=== PATIENT | male | born 2000 | race Caucasian/White ===

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

== ENCOUNTER 2019-07-15 14:35 | Inpatient (IN) ==
[2019-07-15] MEDS ORDERED: AMIDATE ONE (14:51)
[2019-07-15] MEDS ORDERED: ATIVAN ONE (14:51)
[2019-07-15] MEDS ORDERED: QUELICIN ONE (14:52)
[2019-07-15] MEDS ORDERED: NARCAN ONE (14:53)
[2019-07-15] MEDS ORDERED: ATIVAN IV ONE ×3 (14:59→16:30)
[2019-07-15] MEDS ORDERED: NARCAN IV ONE (14:59)
[2019-07-15] MEDS ORDERED: DIPRIVAN 1% 1,000 MG/100 ML BOTTLE ONE ×2 (14:59→16:03)
--- NOTE | 2019-07-15 15:23 | Diag Imaging Result Doc PS360 ---
EXAM: CHEST-PORTABLE HISTORY: INTUBATED TECHNIQUE: Single view COMPARISON: None. FINDINGS: The lungs are well expanded. Endotracheal tube in good position. The tip is located approximately 4 cm above the wilver. The heart is not enlarged. The vessels are not distended. There are no infiltrates. No effusion identified. IMPRESSION: Endotracheal tube in good position. Electronically signed by Michael Grande 07/15/2019 3:20 PM
[2019-07-15] MEDS: VERSED 100 MG in NS 80 ML IV SCH (15:32)
--- NOTE | 2019-07-15 15:34 | Diag Imaging Result Doc PS360 ---
EXAM: CT HEAD W/O CONTRAST INDICATION: AMS TECHNIQUE: This exam was performed using automated exposure control, adjustment of mA or kV according to patient size, and/or use of iterative reconstruction technique. COMPARISON: None. FINDINGS: There is no definite acute infarct given the limited sensitivity of CT versus MRI. There is no discrete intracranial mass, mass effect, or intracranial hemorrhage. The surrounding soft tissues and bony structures are essentially unremarkable. IMPRESSION: No evidence of acute intracranial pathology. Electronically signed by Huy Keene 07/15/2019 3:32 PM
[2019-07-15] MEDS ORDERED: NS 1,000 ML ONE (15:49)
[2019-07-15] MEDS ORDERED: NS 1,000 ML IV ONE ×2 (15:50)
[2019-07-15 15:53] LABS: URINE SOURCE CATH
[2019-07-15] MEDS ORDERED: DIPRIVAN 1% IV ONE ×2 (15:55→17:06)
[2019-07-15] MEDS: DIPRIVAN 1% 1,000 MG/100 ML BOTTLE IV SCH ×2 (16:01→23:27)
[2019-07-15 16:20] LABS: BASO# 0.08 X1000 (0.0-0.2); BASO% 0.7 % (0.0-0.8); EOS# 0.05 X1000 (0.0-0.7); EOS% 0.4 % (0.0-10.0); HEMATOCRIT 56.2 % (42.0-52.0); HEMOGLOBIN 17.7 g/dL (14.0-18.0); IMM GRAN# 0.44 X1000 (0.0-0.04); IMM GRAN% 3.6 % (0.0-0.5); LYMPH# 6.21 X1000 (1.2-3.4); LYMPH% 50.9 % (20.5-51.1); MCH 30.8 PG (27-31); MCHC 31.5 g/dL (33-37); MCV 97.7 FL (81-99); MONO# 0.68 X1000 (0.11-0.59); MONO% 5.6 % (1.7-9.3); MPV 12.9 FL (7.4-10.4); NEUT# 4.75 X1000 (1.4-6.5); NEUT% 38.8 % (42.2-75.2); PLT 236 X1000 (130-400); RBC 5.75 XMIL (4.7-6.1); RDW 11.9 % (11.5-14.5); WBC 12.21 X1000 (4.8-10.8)
[2019-07-15 16:21] LABS: BILIRUBIN URINE NEGATIVE (NEGATIVE); BLOOD URINE MODERATE (NEGATIVE); COLOR YELLOW; GLUCOSE URINE NEGATIVE (NEGATIVE); KETONE URINE 20 mg/dL (NEGATIVE); LEUKOCYTES URINE NEGATIVE (NEGATIVE); NITRITE URINE NEGATIVE (NEGATIVE); PH URINE 6.5; PROTEIN URINE >600 mg/dL (NEGATIVE); SP GRAVITY URINE 1.031; TURBIDITY URINE HAZY (CLEAR); UROBILINOGEN URINE 8 mg/dL (NORMAL)
[2019-07-15 16:23] LABS: UR EPITHELIAL CELLS <10 /HPF (<10); URINE BACTERIA NEGATIVE /HPF; URINE RBC 20-40 /HPF (<10)
[2019-07-15 16:35] LABS: UR AMPHETAMINES QUAL NONE DETECTED (NONE DETECT); UR BARBITUATES QUAL NONE DETECTED (NONE DETECT); UR BENZODIAZEPIN QUAL NONE DETECTED (NONE DETECT); UR CANNABINOIDS QUAL PRESUMPTIVE POSITIVE (NONE DETECT); UR COCAINE QUAL PRESUMPTIVE POSITIVE (NONE DETECT); UR METHADONE QUAL NONE DETECTED (NONE DETECT); UR OPIATES QUAL NONE DETECTED (NONE DETECT); UR OXYCODONE QUAL NONE DETECTED (NONE DETECT); UR PCP QUAL NONE DETECTED (NONE DETECT)
[2019-07-15 17:06] LABS: ACETAMINOPHEN < 1.2 ug/mL (10-30); AGAP 43; ALBUMIN 5.9 g/dL (3.5-5.0); ALKALINE PHOSPHATASE 98 U/L (32-122); BUN 17 mg/dL (8-22); CALCIUM 13.5 mg/dL (8.8-10.2); CHLORIDE 93 mmol/L (98-107); COSMO 302; CREATININE 1.5 mg/dL (0.7-1.2); ESTIMATED GFR 41; GLUCOSE 240 mg/dL (70-104); GOT 30 U/L (10-34); GPT 17 U/L (10-44); MAGNESIUM 3.1 mg/dL (1.5-2.7); POTASSIUM 5.1 mmol/L (3.5-5.1); SODIUM 147 mmol/L (136-145); TCO2 11 mmol/L (25-35); TOTAL BILIRUBIN 1.68 mg/dL (0.20-1.00); TOTAL PROTEIN 8.8 g/dL (6.3-8.3)
--- NOTE | 2019-07-15 17:07 | PROVIDER DOCUMENTATION ---
This chart was entered by Elysia Ochoa Scribe, acting as scribe for Jacky Merritt MD. [id number] Abuse/Overdose - General Chief Complaint: Unresponsive Stated Complaint: OVERDOSE Time Seen by Provider: 07/15/19 14:54 Source: EMS Allergies/Adverse Reactions: Allergies Allergy/AdvReac Type Severity Reaction Status Date / Time vancomycin Allergy ITCHING Verified 06/18/19 15:56 Home Medications: Home Medication List Medication Instructions Recorded Confirmed Last Taken Type Ibuprofen [Ibu] 800 mg PO Q8H #15 tab 04/17/19 Unknown Rx Cephalexin [Keflex] 500 mg PO BID #14 cap 06/18/19 Unknown Rx Mupirocin Ointment [Bactroban 1 applicatn TOP TID #1 tube 06/18/19 Unknown Rx Ointment] NK [No Home Medications] 07/15/19 07/15/19 Unknown History - History of Present Illness-Drug/Alcohol Nature of Presenting Problem: y/o male presents to ED unresponsive. Pt was found in his vehicle in a parking lot with agonal respirations. EMS reports friend of pt was at the scene and states was taking fentanyl and xanax. EMS states they gave 2 of Narcan en route to ED and placed nonrebreather. EMS reports pt began seizing in the ambulance. Pt is unresponsive and seizing upon ED arrival. This episode of drinking or use began:: unsure Severity: reports: severe Situational problems related to:: reports: N/A Psychiatric Complaints: reports: denies symptoms Associated Symptoms: reports: other (unresponsive) Any injuries associated with this episode of intoxication?: No Similar Symptoms Previously?: No Recently seen or treated by another doctor?: No - Overdose List substance(s) ingested.: fentanyl; xanax How did the ingestion/other suicidal act come to attention?: friend of pt called EMS Suicide Risk Assessment: male sex, drug or ETOH abuse Review of Systems - Adult - REVIEW OF SYSTEMS - ADULT ROS:: unobtainable per condition (unresponsive) Constitutional: reports: no symptoms reported Past History - Adult - PAST MEDICAL HISTORY-ADULT Review of Records: reports: Old Records Reviewed, Nursing Assessment Review, Medications Reviewed Major Childhood Illnesses: reports: denies history - IMMUNIZATION STATUS Childhood Immunizations: See Nurse Assessment Flu Vaccine: See Nurse Assessment - FAMILY HISTORY Family History: reviewed, not pertinent - SOCIAL HISTORY Living Situation: family Physical Exam-General - PHYSICAL EXAM-ADULT Initial Vital Signs Reviewed: Yes (O2 sat 88% upon arrival; bp 110/50; FSBS 192) - CONSTITUTIONAL General Appearance: other (unresponsive; actively seizing; incontinence; nonrebreather in place; cannot follow commands) - EYES Eyes: pink conjunctivae, other (dilated pupils to 1 cm) - HEAD, EARS, NOSE, MOUTH & THROAT HENMT: normocephalic/atraumatic, moist mucous membranes - RESPIRATORY Respiratory: accessory muscle use, other (nonrebreather in place) - CARDIOVASCULAR Cardiovascular: other (pt tachycardic on arrival; HR decreased to 40s; HR increased to 70s after intubation) - GASTROINTESTINAL (ABDOMEN) Abdominal Exam: normal bowel sounds, soft - SKIN Integumentary: normal color, warm/dry - NEUROLOGIC Neurologic: other (unresponsive; actively seizing; cannot follow commands) - PSYCHIATRIC Psych/Mental Status: other (unresponsive; actively seizing; cannot follow co mmands) Progress - PLAN OF CARE/RESULTS Progress/Plan/Lab Results: Vital Signs - 8 hr 07/15/19 14:37 07/15/19 14:41 07/15/19 14:42 Temperature 98.6 F Pulse Rate 103 H 77 92 H Respiratory Rate 33 H 33 H 33 H Blood Pressure 126/70 126/70 O2 Sat by Pulse Oximetry 91 L 91 L 91 L 07/15/19 14:43 07/15/19 14:45 07/15/19 14:46 Temperature Pulse Rate 55 L 92 H Respiratory Rate 22 23 23 Blood Pressure 131/74 110/50 O2 Sat by Pulse Oximetry 86 L 88 L 07/15/19 14:48 07/15/19 14:50 07/15/19 14:51 Temperature Pulse Rate 62 37 L 76 Respiratory Rate 31 H 8 L 40 H Blood Pressure 108/51 148/67 O2 Sat by Pulse Oximetry 89 L 90 L 07/15/19 14:53 07/15/19 14:55 07/15/19 14:56 Temperature Pulse Rate 74 57 L 55 L Respiratory Rate 27 H 17 16 Blood Pressure 160/55 148/67 O2 Sat by Pulse Oximetry 91 L 90 L 90 L 07/15/19 14:57 07/15/19 14:59 07/15/19 15:00 Temperature Pulse Rate 54 L 51 L 50 L Respiratory Rate 17 17 15 Blood Pressure 139/64 147/62 O2 Sat by Pulse Oximetry 88 L 91 L 90 L 07/15/19 15:01 07/15/19 15:03 07/15/19 15:04 Temperature Pulse Rate 55 L 61 62 Respiratory Rate 17 21 21 Blood Pressure 154/67 147/74 O2 Sat by Pulse Oximetry 90 L 89 L 90 L 07/15/19 15:15 Temperature Pulse Rate Respiratory Rate Blood Pressure O2 Sat by Pulse Oximetry 94 L Laboratory Results - last 24 hr 07/15/19 07/15/19 07/15/19 14:42 14:42 14:42 WBC RBC Hgb Hct MCV MCH MCHC RDW Std Deviation Plt Count MPV Immature Gran % (Auto) Neut % (Auto) Lymph % (Auto) [place] % (Auto) Eos % (Auto) Baso % (Auto) Immature Gran # (Auto) Neut # (Auto) Lymph # (Auto) [place] # (Auto) Eos # (Auto) Baso # (Auto) Urine Source CATH Urine Color YELLOW Urine Turbidity HAZY Urine pH 6.5 Ur Specific [place] 1.031 Urine Protein >600 A Ur Glucose (Stick) NEGATIVE Ur Ketones (Stick) 20 A Urine Blood MODERATE A Urine Nitrite NEGATIVE Urine Bilirubin NEGATIVE Urobilinogen Dipstick 8 A Urine Leukocytes NEGATIVE Urine WBC (Auto) 10-20 A Urine RBC (Auto) 20-40 A U Epithel Cells (Auto) <10 Urine Bacteria (Auto) NEGATIVE Urine Opiates Screen NONE DETECTED Ur Oxycodone Screen NONE DETECTED Ur Methadone, Qual NONE DETECTED Ur Barbiturates Screen NONE DETECTED Ur Phencyclidine Scrn NONE DETECTED Ur Amphetamines Screen NONE DETECTED U Benzodiazepines Scrn NONE DETECTED Urine Cocaine Screen PRESUMPTIVE POSITIVE A U Cannabinoids Screen PRESUMPTIVE POSITIVE A Plasma/Serum Ethyl Alc 07/15/19 14:42 WBC 12.21 H RBC 5.75 Hgb 17.7 Hct 56.2 H MCV 97.7 MCH 30.8 MCHC 31.5 L RDW Std Deviation 11.9 Plt Count 236 MPV 12.9 H Immature Gran % (Auto) 3.6 H Neut % (Auto) 38.8 L Lymph % (Auto) 50.9 [place] % (Auto) 5.6 Eos % (Auto) 0.4 Baso % (Auto) 0.7 Immature Gran # (Auto) 0.44 H Neut # (Auto) 4.75 Lymph # (Auto) 6.21 H [place] # (Auto) 0.68 H Eos # (Auto) 0.05 Baso # (Auto) 0.08 Urine Source Urine Color Urine Turbidity Urine pH Ur Specific [place] Urine Protein Ur Glucose (Stick) Ur Ketones (Stick) Urine Blood Urine Nitrite Urine Bilirubin Urobilinogen Dipstick Urine Leukocytes Urine WBC (Auto) Urine RBC (Auto) U Epithel Cells (Auto) Urine Bacteria (Auto) Urine Opiates Screen Ur Oxycodone Screen Ur Methadone, Qual Ur Barbiturates Screen Ur Phencyclidine Scrn Ur Amphetamines Screen U Benzodiazepines Scrn Urine Cocaine Screen U Cannabinoids Screen Plasma/Serum Ethyl Alc Orders Category Date Time Status CT HEAD W/O CONTRAST [CT] Stat Exams 07/15/19 14:55 Completed cxr [CHEST-PORTABLE] [RAD] Stat Exams 07/15/19 14:54 Completed ACETAMINOPHEN [TDM] Stat Lab 07/15/19 14:42 Received ALCOHOL BLOOD Stat Lab 07/15/19 14:42 Completed CBC WITH ELECTRONIC DIFF [HEME] Stat Lab 07/15/19 14:42 Completed COMPREHENSIVE METABOLIC PANEL [CHEM] Stat Lab 07/15/19 14:42 Received MAGNESIUM [CHEM] Stat Lab 07/15/19 14:42 Received TROPONIN T Stat Lab 07/15/19 14:42 Received URINALYSIS [URINALYSIS] Stat Lab 07/15/19 14:42 Completed URINE DRUG SCREEN Stat Lab 07/15/19 14:42 Completed 0.9% Sodium Chloride Inj [Ns] 1,000 ml Med 07/15/19 15:49 Discontinued .ROUTE As directed 0.9% Sodium Chloride Inj [Ns] 1,000 ml Med 07/15/19 15:50 Active IV 125 mls/hr 0.9% Sodium Chloride Inj [Ns] 1,000 ml Med 07/15/19 15:50 Discontinued IV 999 mls/hr 0.9% Sodium Chloride Inj [Ns] 80 ml Med 07/15/19 15:00 Active Midazolam [Versed] 100 mg IV As Directed mls/hr Etomidate [Amidate] Med 07/15/19 14:51 Discontinued 40 mg .ROUTE .STK-MED ONE Lorazepam [Ativan] Med 07/15/19 14:51 Discontinued 2 mg .ROUTE .STK-MED ONE Lorazepam [Ativan] Med 07/15/19 14:59 Discontinued 2 mg IV NOW ONE Lorazepam [Ativan] Med 07/15/19 15:00 Discontinued 2 mg IV NOW ONE Lorazepam [Ativan] Med 07/15/19 16:30 Discontinued 2 mg IV NOW ONE Naloxone [Narcan] Med 07/15/19 14:53 Discontinued 2 mg .ROUTE .STK-MED ONE Naloxone [Narcan] Med 07/15/19 14:59 Discontinued 2 mg IV NOW ONE Propofol [Diprivan 1%] Med 07/15/19 15:55 Discontinued 40 mg IV STAT ONE Propofol [Diprivan 1%] Med 07/15/19 17:06 Once 40 mg IV STAT ONE Propofol [Diprivan 1%] Med 07/15/19 14:59 Discontinued 1,000 mg in 100 ml .ROUTE As directed Propofol [Diprivan 1%] Med 07/15/19 16:03 Discontinued 1,000 mg in 100 ml .ROUTE As directed Propofol [Diprivan 1%] Med 07/15/19 16:00 Active 1,000 mg in 100 ml IV As Directed mls/hr Succinylcholine [Quelicin] Med 07/15/19 14:52 Discontinued 200 mg .ROUTE .STK-MED ONE Ventilator Order Stat Oth 07/15/19 15:17 Active Pt given 2 of Narcan and 4 of ativan prior to intubation. Result Diagrams: 07/15/19 14:42 - EKG 1 Time of EKG reading by physician:: 16:22 EKG Read and Signed by:: Jacky Merritt EKG Interpretation (*Must complete 3 of following elements*): Abnormal (Gab rderline) Rate: 110 Rhythm: Sinus tach [place]: normal QRS: other (possible L atrial enlargement) CO Interval: normal ST Wave: normal - XRAY 1 XRAY Study: Chest Impression: See EMR Report ([facility] - [address], [address] [address] [facility] - [address] [place] [address] Department of Imaging Patient: [id number] Date: 07/15/19MR#: [id number] : 07/14/1900DM Status: PRE ERAcct#: [id number] Age/Sex: 89/MRoom/Bed: Loc: ED Ordering Physician: Jacky Merritt MD Family Physician: Reason for Procedure: INTUBATED Signed EXAM: CHEST-PORTABLE HISTORY: INTUBATED TECHNIQUE: Single view COMPARISON: None. FINDINGS: The lungs are well expanded. Endotracheal tube in good position. The tip is located approximately 4 cm above the wilver. The heart is not enlarged. The vessels are not distended. There are no infiltrates. No effusion identified. IMPRESSION: Endotracheal tube in good position. Electronically signed by Michael Grande 07/15/2019 3:20 PM 07/15/19 1520 Interpreting Physician: Michael Grande MD Dictated Date/Time: 07/15/19 1520 cc: Jacky Merritt MD;) - CT/MRI 1 CT Study: Head Impression: See EMR Report ([facility] - [address] [place] [address] [address], [place] [address] [facility] - [address] [place] [address] Department of Imaging Patient: [id number] Date: 07/15/19#: [id number] : 9ADM Status: PRE ERAcct#: [id number] Age/Sex: 89/MRoom/Bed: Loc: ED Ordering Physician: Jacky Merritt MD Family Physician: Reason for Procedure: AMS Signed EXAM: CT HEAD W/O CONTRAST INDICATION: AMS TECHNIQUE: This exam was performed using automated exposure control, adjustment of mA or kV according to patient size, and/or use of iterative reconstruction technique. COMPARISON: None. FINDINGS: There is no definite acute infarct given the limited sensitivity of CT versus MRI. There is no discrete intracranial mass, mass effect, or intracranial hemorrhage. The surrounding soft tissues and bony structures are essentially unremarkable. IMPRESSION: No evidence of acute intracranial pathology. Electronically signed by Huy Keene 07/15/2019 3:32 PM 07/15/19 1532 Interpreting Physician: Huy Keene MD Dictated Date/Time: 07/15/19 1531 cc: Jacky Merritt MD;) Procedures - INTUBATION Time of Intubation: 14:52 (Pt started om versed drip after intubation.) Airway Evaluation: Copious Secretions Mallampati Class: 1 Intubation Method: orotracheal Equipment: ETT Tube Size (cm): 7.5 Pretreated with 100% Oxygen?: Yes Breath Sounds after Intubation: equal ETT Primary Tube Confirmation: Capnometry CO2 Change, Direct Visualization, Chest Rise and Fall, Tube placement verified on XRAY Intubation Complications: no complications Vent Settings: See Respiratory Therapy Notes Procedure Comment: Pt given 20 of etomidate at 1451 and 100 of succ at 1452. 25 at the lip. Departure - Departure Date of Disposition Decision: 07/15/19 Time of Disposition Decision: 17:06 DIAGNOSIS: Substance abuse, Seizure Disposition: ADMITTED INPATIENT 09 Certified Medical Emergency: Emergent Condition: Critical Referrals and Follow-Ups: None,PCP [Primary Care Provider] - - Critical Care Note This patient required my direct & personal management of CC.: Yes Total Time (mins): 90 Critical Care Statement: This patient required my direct personal management to treat or rule out processes, the absence of which, could potentiallly result in sudden, clinically significant life or limb threatening deterioration. Attestation - Physician/ ALYSSIA Attestation Patient care was provided by Advanced Practice Provider:: No The physician spent face to face time with patient:: Yes Advanced Practice Provider documentation review:: Supervising physician onsite and consulted in the evaluation and care of this patient. The physician did have a face to face encounter with the patient. This chart was documented by the indicated scribe, (Elysia Ochoa Scribe) and accurately reflects the services I performed and decisions made by me, Jacky Merritt MD, as attested by the provider's signature.
[2019-07-15] MEDS ORDERED: 1/2 NS 1,000 ML IV ONE (17:31)
[2019-07-15 17:33] LABS: ALLEN TEST YES; BE -5.8 mmoll (-3.0-3.0); BLOOD TYPE ARTERIAL; HCO3-(ACT) 20.4 mmoll (20.0-26.0); METHB 1.6 % (0.0-1.5); O2(CT) 22.6 mL/dL (15.0-23.0); O2HB 96.6 % (95.0-99.0); PCO2(98.6) 40 mmHg (35-45); PO2(98.6) 129 mmHg (60-100); SAMPLE BLOOD; SAO2 99.4 % (95.0-100.0); THB 16.5 g/dL (11.5-17.4); TVOL 450 mL; pH(98.6) 7.31 (7.35-7.45)
[2019-07-15 17:34] LABS: MODALITY VENTILATOR; SRATE 18 BPM
[2019-07-15] MEDS ORDERED: KEPPRA 1,500 MG in NS 100 ML IV ONE (17:37)
[2019-07-15] MEDS ORDERED: ZOFRAN IV PRN (17:38)
[2019-07-15] MEDS ORDERED: SODIUM CHLORIDE 0.9% INJ SCH (17:45)
[2019-07-15] MEDS ORDERED: VANCOMYCIN IV PER PHARMACY MISC SCH (17:45)
[2019-07-15] MEDS: PROTONIX IV SCH (17:45)
[2019-07-15] MEDS: ZOSYN 2.25 GM in NS 50 ML IV SCH ×3 (17:45→22:56)
[2019-07-15] MEDS ORDERED: TYLENOL PO PRN (17:58)
[2019-07-15] MEDS ORDERED: TYLENOL PR PRN (17:59)
[2019-07-15 18:55] LABS: AGAP 16; BUN 19 mg/dL (8-22); CHLORIDE 104 mmol/L (98-107); COSMO 283; CREATININE 1.3 mg/dL (0.7-1.2); ESTIMATED GFR > 60; GLUCOSE 130 mg/dL (70-104); POTASSIUM 4.1 mmol/L (3.5-5.1); SODIUM 140 mmol/L (136-145); TCO2 20 mmol/L (25-35)
[2019-07-15 19:13] LABS: INR 1.06; PROTIME 13.9 Seconds (11.0-16.0)
--- NOTE | 2019-07-15 20:29 | HISTORY AND PHYSICAL ---
ADDENDUM: I was informed by the emergency room nurse that the patient's father had called and informed us that the patient was recently diagnosed with HIV, and he was frustrated with the diagnosis and because of that he may have used some substances. The details of this is not entirely available to me at the moment. HIV could cause intracranial infection based on CD4 count, which can precipitate seizures. Though his head CT is unremarkable, I will get HIV and hepatitis panel tomorrow. cc: Wyatt Earl MD
--- NOTE | 2019-07-15 21:15 | HISTORY AND PHYSICAL ---
CHIEF COMPLAINT: Recurrent seizures. HISTORY OF PRESENT ILLNESS: Mr. Lerma is a 18-year-old man with a past medical history of mood disorder and multiple recreational substance use, who came in after an episode of witnessed seizure in a parking lot. The patient sometimes lives with his mother and sometimes at his friend's house. Currently, the history is given to me by the patient's mother at bedside, and multiple family members. Apparently, the patient has been using multiple recreational substances, including up to 5 Xanax a day, cocaine, marijuana, amphetamines and some other substances. He has been injecting the substances. He has also been smoking the substances; however, according to the report, the patient did not use any of the recreational substances in the last 5 days. The patient was with 1 of his friends in a parking lot, and his friend noticed that the patient had suddenly slumped over and started having jerky movements of the body. EMS was called, who arrived, and the patient was seizing, having a generalized tonic-clonic seizure. He was give Narcan and brought to the emergency room. The entire duration of the seizure was not clear. He has had 2 seizures after coming to the emergency room and required 3 doses of Ativan. He was very drowsy post seizure, and there were concerns about airway protection, so intubation was performed. He did have a lot of oral secretions noticed at the time of intubation. After intubation, the hospitalist team was consulted for further management. In the emergency room he was afebrile. He was tachycardic. He was close to normotensive. There were multiple metabolic abnormalities. His urine toxicology was positive for cocaine and other recreational substances. At the time of my encounter, the patient is intubated and sedated. He is still very fidgety despite being on the maximum of midazolam and propofol. He has multiple family members at bedside. REVIEW OF SYSTEMS: Could not be obtained. PAST MEDICAL HISTORY: History of ankle fracture and arm fracture, history of Staph infection of penis and buttocks. CURRENT MEDICATIONS: None. SOCIAL HISTORY: He smokes marijuana and uses recreational substances including Xanax, cocaine, probably amphetamines, and alcohol. FAMILY HISTORY: Positive for depression in father and mother. PHYSICAL EXAMINATION: VITAL SIGNS: Temperature 98.6, pulse 62, respiratory rate 21. He is currently saturating 99% on mechanical ventilation. HEENT: His pupils are dilated bilaterally. Oral cavity has lots of secretions. He has significant rhonchi in the right supramammary region and mild inspiratory crackles bilaterally. Otherwise, air entry is bilaterally equal. No wheezes. CARDIOVASCULAR: Normal, tachycardic, no murmur or gallop. ABDOMEN: Soft and nontender. Though he is intubated, there is no rigidity. Active bowel sounds. EXTREMITIES: No lower extremity edema. : He has a urine catheter. NEUROLOGIC: He is fidgety and moving all extremities spontaneously despite being on sedation. LABORATORY DATA: Leukocytosis, elevated hemoglobin, normal platelet count. ABG suggestive of mild acidosis, likely metabolic. Lactate is elevated. Hypernatremia, hypochloremia, low bicarbonate, elevated anion gap, acute kidney injury. He also has hypercalcemia, hypermagnesemia, elevated total bilirubin. His urinalysis has pyuria, hematuria. Urine toxicology is positive for cocaine and cannabis. Serum alcohol was undetectable. Blood cultures have been ordered. IMAGING: Chest x-ray did not have any acute pathology, and the endotracheal tube was in good position. CT scan did not have any acute cardiopulmonary pathology. EKG is pending. ASSESSMENT/PLAN: 1. Recurrent generalized tonic-clonic seizure with past history of seizure associated with recreational substance abuse. His current seizure episode is likely related to either toxicity or withdrawal from multiple recreational substance use. He reportedly had been using 5 tablets of Xanax every day; however, he stopped using these substances 5 days ago, so benzodiazepine withdrawal seizure is certainly a possibility. His head CT was unremarkable for any acute pathology. I will give him a loading dose of intravenous levetiracetam, considering his recurrent seizure, and will consult Neurology for further recommendations. 2. Multiple metabolic derangement including hypermagnesemia, hypercalcemia, hypernatremia. Electrolyte abnormalities could cause a seizure, and I will continue to resuscitate him with intravenous fluids and follow up and replete electrolytes every 6 hours. 3. Acute hypoxic respiratory failure. He was intubated for airway protection. Will continue mechanical ventilation. He is currently requiring propofol and midazolam for sedation. Despite that, he is fidgety. I will add intravenous morphine and intravenous haloperidol as needed. I will consult Pulmonology for further recommendations. Based on his exam, he has crackles in the right lung field, and I will start him on prophylactic intravenous Zosyn for aspiration pneumonitis. 4. Acute kidney injury, lactic acidosis, likely in the setting of current seizure. I will resuscitate him with intravenous fluids and follow up with serial lactates and basic metabolic panels. 5. Recreational substance abuse with prior history of mood disorder. His urine toxicology is positive for cocaine and cannabis. He will need counseling and probably rehab eventually. The family was already talking to one of the substance use disorder rehabs outpatient. I will consult Cell Attendant Helper. 6. Disposition: Mr. Lerma's condition is critical considering multiple recreational substance abuse, recurrent seizure, and multiple metabolic derangement. I discussed his critical condition with multiple family members at the bedside. I answered all of their questions. I will transfer the patient to the ICU for further management. More than 30 minutes of time was spent taking care of this patient. Plan of care was discussed with family members as well as nursing team. cc: Wyatt Earl MD MTDD
[2019-07-15] MEDS: 1/2 NS 2,000 ML IV ONE (22:02)
[2019-07-15] MEDS ORDERED: D50W SYRINGE IV ONE (23:49)
[2019-07-16] MEDS: 1/2 NS 2,000 ML IV ONE (01:42)
[2019-07-16] MEDS: DIPRIVAN 1% 1,000 MG/100 ML BOTTLE IV SCH ×5 (03:19→23:26)
[2019-07-16 04:23] LABS: ALLEN TEST YES; BE -3.1 mmoll (-3.0-3.0); BLOOD TYPE ARTERIAL; HCO3-(ACT) 22.5 mmoll (20.0-26.0); METHB 1.3 % (0.0-1.5); O2(CT) 23.1 mL/dL (15.0-23.0); O2HB 97.7 % (95.0-99.0); PCO2(98.6) 31 mmHg (35-45); PO2(98.6) 186 mmHg (60-100); SAMPLE BLOOD; SAO2 100.1 % (95.0-100.0); SRATE 18 BPM; THB 16.6 g/dL (11.5-17.4); TVOL 450 mL; pH(98.6) 7.42 (7.35-7.45)
[2019-07-16 04:25] LABS: MODALITY VENTILATOR
[2019-07-16] MEDS: ZOSYN 2.25 GM in NS 50 ML IV SCH ×4 (04:52→22:55)
[2019-07-16] MEDS: VERSED 100 MG in NS 80 ML IV SCH (05:28)
[2019-07-16] MEDS: KEPPRA 750 MG in NS 100 ML IV SCH ×2 (05:28→17:16)
[2019-07-16] MEDS: D50W SYRINGE IV PRN ×2 (05:33→12:29)
[2019-07-16 06:02] LABS: AGAP 16; ALB/GLOB RATIO 2.2; ALKALINE PHOSPHATASE 56 U/L (32-122); BUN 16 mg/dL (8-22); CALCIUM 8.7 mg/dL (8.8-10.2); CHLORIDE 107 mmol/L (98-107); COSMO 283; CREATININE 1.4 mg/dL (0.7-1.2); ESTIMATED GFR > 60; GLUCOSE 83 mg/dL (70-104); GOT 42 U/L (10-34); GPT 20 U/L (10-44); MAGNESIUM 2.9 mg/dL (1.5-2.7); POTASSIUM 3.7 mmol/L (3.5-5.1); SODIUM 142 mmol/L (136-145); TCO2 19 mmol/L (25-35); TOTAL BILIRUBIN 0.65 mg/dL (0.20-1.00); TOTAL PROTEIN 5.8 g/dL (6.3-8.3)
[2019-07-16] MEDS: PROTONIX IV SCH (06:37)
--- NOTE | 2019-07-16 06:52 | EKG Report ---
Test Performed on : 07/16/2019 05:58:08 AM Test Reason : Bradycardia Blood Pressure : / mmHG Vent. Rate : 046 BPM Atrial Rate : 046 BPM P-R Int : 130 ms QRS Dur : 094 ms QT Int : 430 ms P-R-T Axes : 002 065 053 degrees QTc Int : 376 ms Sinus bradycardia. with sinus arrhythmia. Nonspecific T wave abnormality Abnormal ECG When compared with ECG of 06-SEP-2016 15:43, Vent. rate has decreased BY 61 BPM T wave inversion now evident in Anterior leads QT has shortened Confirmed by Andrés MILAN, Berto Garcia ([id number]) on 07/19/2019 9:26:25 AM
[2019-07-16 07:00] LABS: BASO# 0.01 X1000 (0.0-0.2); BASO% 0.1 % (0.0-0.8); HEMATOCRIT 41.4 % (42.0-52.0); HEMOGLOBIN 14.7 g/dL (14.0-18.0); IMM GRAN# 0.03 X1000 (0.0-0.04); IMM GRAN% 0.2 % (0.0-0.5); LYMPH# 1.19 X1000 (1.2-3.4); LYMPH% 8.7 % (20.5-51.1); MCH 31.3 PG (27-31); MCHC 35.5 g/dL (33-37); MCV 88.1 FL (81-99); MONO# 1.25 X1000 (0.11-0.59); MONO% 9.1 % (1.7-9.3); MPV 10.9 FL (7.4-10.4); NEUT# 11.24 X1000 (1.4-6.5); NEUT% 81.9 % (42.2-75.2); PLT 156 X1000 (130-400); RDW 11.7 % (11.5-14.5); WBC 13.72 X1000 (4.8-10.8)
[2019-07-16] MEDS ORDERED: D5 1/2 NS 1,000 ML IV SCH (07:00)
--- NOTE | 2019-07-16 07:18 | EKG Report ---
Test Performed on : 07/15/2019 4:22:00 PM Test Reason : ED. NO EKG ORDER FOR MUSE Blood Pressure : / mmHG Vent. Rate : 110 BPM Atrial Rate : 110 BPM P-R Int : 138 ms QRS Dur : 090 ms QT Int : 306 ms P-R-T Axes : 085 087 062 degrees QTc Int : 414 ms Sinus tachycardia. Possible Left atrial enlargement Borderline ECG No previous ECGs available Unconfirmed Result
--- NOTE | 2019-07-16 07:33 | Diag Imaging Result Doc PS360 ---
EXAM: CHEST-PORTABLE INDICATION: Evaluate for RLL pneumonia TECHNIQUE: One view COMPARISON: 07/15/2019 FINDINGS: The ET tube appears to be in stable position. There has been development of mild subsegmental atelectasis at the left lung base. No new consolidations are identified, otherwise. Cardiac silhouette is stable. IMPRESSION: Development of mild left basilar atelectasis. Stable chest, otherwise. Electronically signed by Huy Keene 07/16/2019 7:31 AM
--- NOTE | 2019-07-16 09:38 | PROGRESS NOTE ---
DATE: 07/16/2019 INTERVAL HISTORY: No acute events overnight. He did have episodes of bradycardia after morning dose of Keppra with his heart rate dropping to 40s. He continues to have elevated creatinine. He was hypoglycemic and required D 50 ampule. Intravenous fluids have been changed now. He continues to have hypermagnesemia. His lactic acidosis has resolved. EKG is suggestive of sinus tachycardia. SUBJECTIVE: Mr. Lerma is intubated and not responding. VITALS: Temperature 98.1 degrees, pulse 68, respiratory 18, blood pressure 126/71, saturating 96% on mechanical ventilation with 50% FiO2. PHYSICAL EXAMINATION: General: Not in acute distress. He has endotracheal tube. He has a urine catheter. HEENT: His pupils are equal, reacting bilaterally. Oral cavity is moist. Lungs: Air entry bilaterally equal. No wheeze, rhonchi, crackles. Cardiovascular: S1, S2 normal. Regular. No murmur or gallop. Abdomen: Soft, nontender. Extremities: No lower extremity edema. Neurologic: He is not fidgety. He is properly sedated on propofol and midazolam. LABS: Suggestive of leukocytosis, normocytic anemia, normal platelet count. In fact, his hemoglobin is normal. ABG suggestive of pH of 7.42, PO2 of 186 on 50% ventilator. Chemistry suggests that his sodium and potassium are within acceptable range. He continues to have elevated creatinine. His glucose is 180 now. His calcium has decreased to 8.7. His magnesium is 2.9. His urine toxicology is positive for cocaine, cannabinoids. Blood cultures are in lab. IMAGING: Chest x-ray does not have any acute pathology. Electrocardiogram has sinus tachycardia with T-wave inversions in leads V 1 and V 2. ASSESSMENT AND PLAN: 1. Generalized tonic-clonic seizures with prior history of seizure associated with recreational substance use. His current seizure episode could be in the setting of multiple recreational drug use or withdrawals from benzodiazepines. Apparently, he was taking up to 5 Xanax tablets a day according to reports. However, he suddenly stopped taking them 5 days ago which could have precipitated seizure. Head computed tomography was unremarkable. I will keep him on intravenous levetiracetam and seizure precaution and appreciate Neurology recommendation. 2. Metabolic derangement including hypomagnesemia, hypercalcemia, hyponatremia on presentation, now improving. Continue to monitor magnesium level. 3. Acute hypoxic respiratory failure. He was intubated for airway protection. I will keep him on intravenous antibiotics for suspected aspiration pneumonia of right lower lung. Appreciate Pulmonology recommendation about sedation and mechanical ventilation. 4. Acute kidney injury, lactic acidosis, now improving. I will monitor basic metabolic panel. 5. Recreational substance abuse with history of mood disorder. I will follow up with human immunodeficiency virus hepatitis panel. 6. Disposition: His condition is critical. TIME SPENT: More than 30 minutes critical care time spent taking care of this patient. cc: Wyatt Earl MD
[2019-07-16] MEDS ORDERED: ATIVAN ONE (09:58)
--- NOTE | 2019-07-16 11:00 | CONSULTATION ---
DATE OF CONSULTATION: 07/16/2019 HISTORY OF PRESENT ILLNESS: Mr. Lerma is 18 years old, and there is report of multiple substance use. He presented with altered consciousness, history consistent with seizure at home, seizure witnessed by the dimensional inspector and further seizures after arrival here at the emergency room. By report, these were generalized, and there was never a definite focal neurologic feature. Levetiracetam was started. I do not have any first hand history to add to that recorded on admission notes. History in the chart indicates he had been taking alprazolam regularly and stopped that several days before onset of recent seizure. There may be some history of prior similar withdrawal related seizure, but I do not have that documented. I do not see history of serious head injury, previous stroke, other neurologic event that might predispose him to seizure. On presentation, there were several metabolic findings including minimal hypernatremia, calcium reported 13.5, quickly corrected, and mild hypomagnesemia. He has been afebrile here. Urine drug screen showed evidence of cocaine and cannabinoids. He required intubation early during admission. He has required heavy sedation and remains mechanically ventilated. There is report that during brief sedation vacation overnight, he sat up and used both arms vigorously and required quick resumption of sedative. PHYSICAL EXAMINATION: Neurologic: On exam, he is supine, head turned slightly to the left, not moving spontaneously. There was minimal response to stroking the sole of the foot bilaterally. Plantar response was silent bilaterally. He has very slight lateral eye movement with passive head turning. Pupils react to bright light. I do not see definite corneal reflex bilaterally. Limb tone is symmetric. Neck: Neck is supple without meningismus. HEENT: Head is unremarkable. IMPRESSION: Global encephalopathy attributed to heavy sedatives on board now. History sounds like recent generalized seizures, most likely related to benzodiazepine withdrawal. The possibility of other substance related intoxication or withdrawal syndrome is not excluded. I agree with current management. He has levetiracetam 750 mg IV q.12 hours and, in light of creatinine 1.3 to 1.4, I suspect he has good serum levels with that dose. When sedation can be stopped, we can assess mental status better and decide then if EEG would help with management decisions. In the short term, I would continue levetiracetam. Of course, he will need to be encouraged to stop illicit drug use. Thanks for asking Neurology to see Mr. Lerma. cc: MD ESTELLA Younger III
[2019-07-16] MEDS: MORPHINE IV PRN ×3 (11:37→22:07)
[2019-07-16] MEDS: D10W 1,000 ML IV SCH (12:32)
[2019-07-16 15:32] LABS: HIV ANTIBODY SCREEN SEE COMMENTS
[2019-07-16] MEDS: LOVENOX SUBQ SCH (20:24)
[2019-07-16 22:57] LABS: URINE SOURCE CATH
--- NOTE | 2019-07-16 23:00 | CONSULTATION ---
DATE OF CONSULTATION: 07/16/2019 CHIEF COMPLAINT: Recurrent seizures. HISTORY OF PRESENT ILLNESS: This is a 18-year-old male with a past medical history of mood disorder and multiple recreational substance use. The patient recently was said to have had a tonic-clonic seizure. Airway protection with mechanical ventilation was obtained. Recent chest x-ray revealed development of mild basilar atelectasis. REVIEW OF SYSTEMS: Unable to obtain. PAST MEDICAL HISTORY: History of ankle fracture and arm fracture, history of Staph infection of penis and buttocks. CURRENT MEDICATIONS: None. SOCIAL HISTORY: Smokes marijuana and uses recreational substances including Xanax, cocaine, probable amphetamines and alcohol. FAMILY HISTORY: Positive for depression in father and mother. LABORATORY DATA: White blood cells 13.72, hematocrit 14.7, hemoglobin 41.4, platelets 156. Sodium 142, potassium 3.7, chloride 107, glucose 83. DIAGNOSTIC DATA: As mentioned in the HPI. PHYSICAL EXAMINATION: VITAL SIGNS: Blood pressure 118/73, temperature 99.1, pulse 60, respirations 18, 02 saturation 100% per mechanical ventilation. GENERAL: This is a 18-year-old male on ventilatory support at the present time. HEENT: Pupils dilated bilaterally. Moist mucous membranes. Trachea midline. Head is atraumatic, normocephalic. RESPIRATORY: Equal air entry bilaterally. No wheezes. Diminished breath sounds. CARDIOVASCULAR: S1 and S2 auscultated. Normal rate and rhythm. ABDOMEN: Soft, nondistended. Bowel sounds active in all 4 quadrants. EXTREMITIES: Without edema, clubbing or cyanosis. ASSESSMENT/PLAN: 1. Acute hypoxic respiratory failure. Continue ventilatory support. Will monitor with arterial blood gases. 2. Probable pneumonitis. Continue antibiotics as prescribed. Will continue to monitor with chest x-ray imaging. 3. Recurrent generalized tonic-clonic seizures. Neurology following. 4. Acute kidney injury. Will continue IV fluid resuscitation and continue to monitor. 5. Continue deep venous thrombosis prophylaxis and gastrointestinal prophylaxis. Thank you for the courtesy of this consult. Dictated by SCHUYLER Velasquez for Berto Mahajan MD cc: SCHUYLER Velasquez MD
[2019-07-16 23:35] LABS: BILIRUBIN URINE NEGATIVE (NEGATIVE); BLOOD URINE SMALL (NEGATIVE); COLOR YELLOW; GLUCOSE URINE NEGATIVE (NEGATIVE); KETONE URINE NEGATIVE (NEGATIVE); LEUKOCYTES URINE NEGATIVE (NEGATIVE); NITRITE URINE NEGATIVE (NEGATIVE); PROTEIN URINE 30 mg/dL (NEGATIVE); SP GRAVITY URINE 1.023; TURBIDITY URINE HAZY (CLEAR); UROBILINOGEN URINE NORMAL (NORMAL)
[2019-07-16 23:57] LABS: UR EPITHELIAL CELLS <10 /HPF (<10); URINE BACTERIA NEGATIVE /HPF; URINE RBC <10 /HPF (<10); URINE WBC <10 /HPF (<10)
[2019-07-17 00:05] LABS: URINE CASTS NONE SEEN; URINE CRYSTALS URIC ACID PRESENT; URINE SMALL ROUND CELLS NONE SEEN; URINE YEAST NONE SEEN
[2019-07-17] MEDS: VERSED 100 MG in NS 80 ML IV SCH (00:20)
[2019-07-17] MEDS: DIPRIVAN 1% 1,000 MG/100 ML BOTTLE IV SCH ×2 (02:52→08:21)
[2019-07-17 04:18] LABS: ALLEN TEST YES; BLOOD TYPE ARTERIAL; HCO3-(ACT) 23.3 mmoll (20.0-26.0); METHB 1.4 % (0.0-1.5); O2(CT) 18.9 mL/dL (15.0-23.0); O2HB 93.6 % (95.0-99.0); PCO2(98.6) 36 mmHg (35-45); PO2(98.6) 68 mmHg (60-100); SAMPLE BLOOD; SAO2 96.4 % (95.0-100.0); SRATE 18 BPM; THB 14.4 g/dL (11.5-17.4); TVOL 450 mL
[2019-07-17 04:21] LABS: MODALITY VENTILATOR
[2019-07-17] MEDS: ZOSYN 2.25 GM in NS 50 ML IV SCH ×4 (04:51→22:52)
[2019-07-17] MEDS: D10W 1,000 ML IV SCH ×2 (04:51→18:00)
[2019-07-17] MEDS: KEPPRA 750 MG in NS 100 ML IV SCH ×2 (05:09→18:07)
[2019-07-17] MEDS: PROTONIX IV SCH (06:04)
[2019-07-17 07:09] LABS: AGAP 16; ALB/GLOB RATIO 1.7; ALBUMIN 3.5 g/dL (3.5-5.0); ALKALINE PHOSPHATASE 53 U/L (32-122); BUN 8 mg/dL (8-22); CALCIUM 8.4 mg/dL (8.8-10.2); CHLORIDE 108 mmol/L (98-107); COSMO 285; ESTIMATED GFR > 60; GLUCOSE 99 mg/dL (70-104); GOT 67 U/L (10-34); GPT 29 U/L (10-44); SODIUM 144 mmol/L (136-145); TCO2 20 mmol/L (25-35); TOTAL BILIRUBIN 0.57 mg/dL (0.20-1.00); TOTAL PROTEIN 5.6 g/dL (6.3-8.3)
[2019-07-17 07:10] LABS: BASO# 0.02 X1000 (0.0-0.2); BASO% 0.2 % (0.0-0.8); EOS# 0.05 X1000 (0.0-0.7); EOS% 0.4 % (0.0-10.0); HEMATOCRIT 39.8 % (42.0-52.0); HEMOGLOBIN 13.7 g/dL (14.0-18.0); IMM GRAN# 0.02 X1000 (0.0-0.04); IMM GRAN% 0.2 % (0.0-0.5); LYMPH% 8.8 % (20.5-51.1); MCH 31.1 PG (27-31); MCHC 34.4 g/dL (33-37); MCV 90.2 FL (81-99); MONO# 1.05 X1000 (0.11-0.59); MONO% 8.4 % (1.7-9.3); MPV 11.5 FL (7.4-10.4); NEUT# 10.28 X1000 (1.4-6.5); PLT 128 X1000 (130-400); RBC 4.41 XMIL (4.7-6.1); RDW 12.2 % (11.5-14.5); WBC 12.52 X1000 (4.8-10.8)
--- NOTE | 2019-07-17 07:18 | Diag Imaging Result Doc PS360 ---
EXAM: CHEST-PORTABLE 07/17/2019 HISTORY: Vent protocol TECHNIQUE: AP portable at 0541 COMMENT: There is an endotracheal tube with its tip in the thoracic inlet. There is increasing opacification in the retrocardiac left lower lobe compared to 07/16/2019. IMPRESSION: Atelectasis and/or pneumonia left lower lobe. Electronically signed by Ed Young 07/17/2019 7:15 AM
[2019-07-17] MEDS: POTASSIUM CHLORIDE 20 MEQ/SWI 20 MEQ/100 ML IVPB IV SCH ×3 (08:22→14:11)
--- NOTE | 2019-07-17 10:00 | PROGRESS NOTE ---
DATE: 07/17/2019 INTERVAL HISTORY: He had a temperature of 102.2 degrees overnight. He often times develops bradycardia secondary to use of propofol, but he is requiring high doses of sedation. The EKG had sinus bradycardia. His platelet is decreasing; I will closely monitor his count and he is down to 40% FiO2. His hypokalemia is currently being repleted. His acute kidney injury has become normal. His HIV test was nonreactive. SUBJECTIVE: He is intubated and not currently answering questions. VITALS: Temperature of 98.7 degrees, pulse of 48, respiratory rate 18, blood pressure 112/59. He is saturating 100% on 40% mechanical ventilation. PHYSICAL EXAMINATION: General: Not in acute distress. HEENT: Pupils are bilaterally equal, reacting to light. He is intubated. Oral cavity is moist. Lungs: Air entry bilaterally equal. No wheeze, rhonchi or crackles. Cardiovascular: S1, S2 normal. Regular. No murmur, rub, or gallop. Abdomen: Soft, scaphoid, nontender. Extremities: No lower extremity edema. : He has urine catheter. Neurologic: With strong verbal stimuli he starts flickering. He is requiring maximum doses of propofol and midazolam. LABS: Suggestive of leukocytosis, normocytic anemia, thrombocytopenia, adequate PO2 on ventilator. His hypokalemia is currently being repleted. Acute kidney injury is normal. HIV and A-1 antigen Antibody was negative. MICROBIOLOGY: No positive microbiological data. IMAGING: Suggests left lower lobe atelectasis versus pneumonia. Electrocardiogram had sinus bradycardia with sinus arrhythmia. ASSESSMENT AND PLAN: 1. Generalized tonic-clonic seizure in the setting of benzodiazepine withdrawal versus intoxication or withdrawal from other substances. Continue intravenous levetiracetam, and in future I will consider electroencephalogram depending on his course. Continue seizure precautions. 2. Acute hypoxic respiratory failure due to recurrent seizures, status post intubation. Continue mechanical ventilation and sedation as per Pulmonology recommendation. He is developing bradycardia to propofol. I appreciate Pulmonology recommendation if alternative sedation is required. 3. Bilateral lower lobe likely aspiration pneumonia with episode of fever and leukocytosis. Continue intravenous Zosyn. Culture data had been unremarkable. 4. Acute kidney injury, lactic acidosis on presentation, now resolved. 5. Recreational substance abuse with history of mood disorder. His human immunodeficiency virus was negative. Hepatitis panel is in lab. I counseled him about stopping his recreational substances. DISPOSITION: He is still on high doses of sedation. I will continue to monitor patient inside ICU. Plan of care will be discussed with the patient's family. TIME SPENT: More than 30 minutes of critical care time spent in taking care of this patient. cc: Wyatt Earl MD
--- NOTE | 2019-07-17 10:43 | PROVIDER PROGRESS NOTE ---
Progress Note Pulmonary additional note: I have seen the case, reviewed the EMR, labs, latest images and other medical teams notes. Also reviewed the [employer] notes and signed necessary form(s). I have noted changes in condition if any from yesterday and did orders if needed. Please see also signed progress sheet. Prognosis: guarded for now. He is a chronic drug abuser. Since yesterday, FIO2 needs are stable at 40%. Will attempt a weaning trial. I reviewed the latest progress note of Dr. Earl. I asked rn staff about condition changes and if they have any needs in regard to today conditions. I spent more than 30 minutes in this process.
[2019-07-17 10:53] LABS: HEPATITIS PROFILE ACUTE SEE COMMENTS
[2019-07-17 12:21] LABS: ALLEN TEST YES; BE -1.7 mmoll (-3.0-3.0); BLOOD TYPE ARTERIAL; HCO3-(ACT) 23.6 mmoll (20.0-26.0); METHB 1.3 % (0.0-1.5); O2(CT) 20.6 mL/dL (15.0-23.0); O2HB 97.2 % (95.0-99.0); PCO2(98.6) 34 mmHg (35-45); PO2(98.6) 139 mmHg (60-100); SAMPLE BLOOD; SAO2 99.8 % (95.0-100.0); THB 14.9 g/dL (11.5-17.4); pH(98.6) 7.42 (7.35-7.45)
[2019-07-17 12:22] LABS: MODALITY VENTILATOR
[2019-07-17] MEDS: HALDOL IV PRN (13:18)
[2019-07-17] MEDS: LOVENOX SUBQ SCH (21:21)
[2019-07-18] MEDS ORDERED: CHLORASEPTIC SPRAY MT PRN (01:07)
[2019-07-18 05:20] LABS: BASO# 0.03 X1000 (0.0-0.2); BASO% 0.2 % (0.0-0.8); EOS# 0.28 X1000 (0.0-0.7); EOS% 2.2 % (0.0-10.0); HEMATOCRIT 41.6 % (42.0-52.0); HEMOGLOBIN 14.5 g/dL (14.0-18.0); IMM GRAN# 0.03 X1000 (0.0-0.04); IMM GRAN% 0.2 % (0.0-0.5); LYMPH# 1.68 X1000 (1.2-3.4); LYMPH% 13.4 % (20.5-51.1); MCH 31.2 PG (27-31); MCHC 34.9 g/dL (33-37); MCV 89.5 FL (81-99); MONO# 0.96 X1000 (0.11-0.59); MONO% 7.6 % (1.7-9.3); NEUT# 9.58 X1000 (1.4-6.5); NEUT% 76.4 % (42.2-75.2); PLT 127 X1000 (130-400); RBC 4.65 XMIL (4.7-6.1); RDW 11.7 % (11.5-14.5); WBC 12.56 X1000 (4.8-10.8)
[2019-07-18 05:45] LABS: AGAP 14; ALBUMIN 4.1 g/dL (3.5-5.0); ALKALINE PHOSPHATASE 59 U/L (32-122); BUN 7 mg/dL (8-22); CALCIUM 8.6 mg/dL (8.8-10.2); CHLORIDE 108 mmol/L (98-107); COSMO 283; CREATININE 0.9 mg/dL (0.7-1.2); ESTIMATED GFR > 60; GLUCOSE 99 mg/dL (70-104); GOT 105 U/L (10-34); GPT 45 U/L (10-44); POTASSIUM 3.5 mmol/L (3.5-5.1); SODIUM 143 mmol/L (136-145); TCO2 21 mmol/L (25-35); TOTAL BILIRUBIN 1.26 mg/dL (0.20-1.00); TOTAL PROTEIN 6.1 g/dL (6.3-8.3)
[2019-07-18] MEDS: ZOSYN 2.25 GM in NS 50 ML IV SCH ×3 (06:40→17:32)
[2019-07-18] MEDS: PROTONIX IV SCH (06:42)
--- NOTE | 2019-07-18 08:45 | PROGRESS NOTE ---
DATE: 07/18/2019 INTERVAL HISTORY: He was passing spontaneous breathing trial yesterday. However, he self- extubated since then. He was saturating well on room air. He did not have any overnight events. SUBJECTIVE: Mr. Lerma is currently alert and oriented. He is complying with care and is following all commands. He states that he had stopped taking Xanax 2 days prior to presentation. However, he was not sure if he was using any substances prior to emergency room presentation as he probably had a seizure and he forgot the entire episode. I counseled him about quitting recreational substances. I counseled him about monitoring him in the ICU. VITALS: Currently, temperature of 99.1 degrees, pulse of 58, respiratory rate 22, blood pressure 130/70, he is saturating 97% on room air. PHYSICAL EXAMINATION: Oral cavity is moist. Lungs: Air entry bilaterally equal. No wheeze or rhonchi. Mild crackles in bilateral infrascapular regions. Cardiovascular: S1, S2 normal. Regular. No murmur, rub, or gallop. Abdomen: Soft, scaphoid, nontender. No lower extremity edema. His Loja catheter is present, which I will remove. He is alert and oriented x3. Input and output suggest positive 1 L since presentation. LABS: Suggestive of leukocytosis, normal hemoglobin, mild thrombocytopenia which is stable. He does have resolution of hypokalemia. His kidney function is normal. MICROBIOLOGY: No positive data. IMAGING: No new imaging. ASSESSMENT AND PLAN: 1. Generalized tonic-clonic seizure in the setting of benzodiazepine withdrawal versus intoxication of recreational substances, now resolved. Continue Keppra with seizure precautions. 2. Acute hypoxic respiratory failure due to recurrent seizures, requiring intubation for airway protection. He got extubated on 07/17/2019. 3. Bilateral lower lobe pneumonia. Continue intravenous Zosyn. 4. Acute kidney injury, lactic acidosis have resolved. 5. Recreational substance abuse and history of mood disorder. I counseled him about stopping recreational substance use as well as seeking help. Eventually he agreed. 6. Disposition. I will monitor patient in the intensive care unit for a few hours to make sure he does not develop any signs of withdrawal and depending on that, I will consider transferring him to routine medical floor. Plan of care discussed with the patient. His questions have been answered. cc: Wyatt Earl MD
[2019-07-18] MEDS: D10W 1,000 ML IV SCH (08:58)
--- NOTE | 2019-07-18 10:46 | PROVIDER PROGRESS NOTE ---
Progress Note Pulmonary additional note: I have seen the case, reviewed the EMR, labs, latest images and other medical teams notes. Also reviewed the [employer] notes and signed necessary form(s). I have noted changes in condition if any from yesterday and did orders. Please see also signed progress sheet. Prognosis: Guarded for now. Since yesterday, He tolerated weaning and was extubated. He tolerated that. I reviewed notes from Dr. Earl I asked clinical staff pharmacist about condition changes and if they have any needs in regard to today conditions. I spent 32 minutes in this process.
[2019-07-18] MEDS: KEPPRA 750 MG in NS 100 ML IV SCH ×2 (11:25→22:15)
[2019-07-18] MEDS ORDERED: MELATONIN PO ONE ×2 (15:26→16:00)
[2019-07-18] MEDS ORDERED: MELATONIN PO SCH (21:00)
[2019-07-18] MEDS: LOVENOX SUBQ SCH (22:16)
[2019-07-18] MEDS: MELATONIN PO SCH (22:17)
[2019-07-19] MEDS: ZOSYN 2.25 GM in NS 50 ML IV SCH ×2 (00:22→05:04)
[2019-07-19] MEDS: HALDOL IV PRN ×2 (02:10→06:20)
[2019-07-19] MEDS: PROTONIX IV SCH (06:20)
[2019-07-19] MEDS ORDERED: ATIVAN IV ONE (06:37)
[2019-07-19] MEDS ORDERED: ATIVAN ONE (06:44)
--- NOTE | 2019-07-19 07:18 | Diag Imaging Result Doc PS360 ---
EXAM: CHEST-1 VIEW HISTORY: SOB TECHNIQUE: Single view COMPARISON: 07/17/2019 FINDINGS: The lungs are well expanded. The endotracheal tube has been removed. The heart is not enlarged. The vessels are not distended. Decreased infiltrates in the left lower lobe. No effusion identified. IMPRESSION: Interval improvement Electronically signed by Michael Grande 07/19/2019 7:15 AM
[2019-07-19 08:45] LABS: BASO# 0.01 X1000 (0.0-0.2); BASO% 0.1 % (0.0-0.8); EOS# 0.23 X1000 (0.0-0.7); EOS% 2.8 % (0.0-10.0); HEMATOCRIT 39.8 % (42.0-52.0); HEMOGLOBIN 13.7 g/dL (14.0-18.0); LYMPH# 1.12 X1000 (1.2-3.4); LYMPH% 13.6 % (20.5-51.1); MCH 30.4 PG (27-31); MCHC 34.4 g/dL (33-37); MCV 88.4 FL (81-99); MONO# 0.71 X1000 (0.11-0.59); MONO% 8.6 % (1.7-9.3); MPV 10.9 FL (7.4-10.4); NEUT# 6.14 X1000 (1.4-6.5); NEUT% 74.9 % (42.2-75.2); PLT 148 X1000 (130-400); RDW 11.4 % (11.5-14.5); WBC 8.21 X1000 (4.8-10.8)
[2019-07-19 09:21] LABS: AGAP 15; ALB/GLOB RATIO 1.6; ALBUMIN 4.2 g/dL (3.5-5.0); ALKALINE PHOSPHATASE 53 U/L (32-122); BUN 7 mg/dL (8-22); CALCIUM 9.5 mg/dL (8.8-10.2); CHLORIDE 107 mmol/L (98-107); COSMO 288; CREATININE 0.8 mg/dL (0.7-1.2); ESTIMATED GFR > 60; GLUCOSE 89 mg/dL (70-104); GOT 116 U/L (10-34); GPT 60 U/L (10-44); SODIUM 146 mmol/L (136-145); TCO2 24 mmol/L (25-35); TOTAL BILIRUBIN 0.67 mg/dL (0.20-1.00); TOTAL PROTEIN 6.8 g/dL (6.3-8.3)
[2019-07-19] MEDS: KLONOPIN PO SCH ×3 (10:06→16:27)
--- NOTE | 2019-07-19 11:14 | PROGRESS NOTE ---
DATE: 07/19/2019 INTERVAL HISTORY: Mr. Lerma was transferred from ICU to medical floor. In the morning time, I was informed by his nurse that the patient had sudden spasmodic movement affecting his entire body. I immediately evaluated the patient at bedside. The patient's father was present. Apparently, it appeared like dystonia involving predominantly bilateral upper extremities, facial muscles. He was awake, alert, and talking during this event where he had tonic movement of his bilateral upper extremities and lower extremities, which he kept on moving in a tonic manner. He states that his muscles were undergoing spasm. VITALS: Temperature of 98.8 degrees, pulse rate 62, respiratory rate 20, blood pressure 140/60. He was saturating 98% on room air at that time. PHYSICAL EXAMINATION: His oral cavity is moist. Pupils are bilaterally dilated. However, they were equally reacting. Air entry is bilaterally equal. No wheeze, rhonchi, crackles. Cardiovascular: S1, S2 normal. No murmur, rub, or gallop. Abdomen: Soft, nontender. He did have some hypertonia of bilateral upper extremities at that time and he was constantly fidgety inside the bed. I was able to flex and extend his elbows bilaterally, as well as his legs. I counseled him and tried to calm him down, and gave him lorazepam following which he started feeling better. LABS: He does not have leukocytosis. His hemoglobin is normal. Platelets are also normal. Essentially acceptable range of electrolytes. He does have a slight elevation in AST and ALT. MICROBIOLOGY: Sputum culture was growing methicillin-sensitive Staphylococcus aureus. IMAGING: Chest x-ray today morning has decreased infiltrate in the left lower lobe without any effusion. ASSESSMENT AND PLAN: 1. Generalized tonic-clonic seizure on presentation in the setting of benzodiazepine withdrawal versus intoxication with recreational substances, now resolved. Continue intravenous Keppra. Head CT did not have acute pathology. Appreciate neurology recommendation about long-term antiseizure prophylaxis. 2. Acute dystonic reaction. This could be in the setting of withdrawal from benzodiazepines. He could have extrapyramidal reaction to intravenous haloperidol he had received. His electrolytes are within acceptable range. I will keep him on oral clonazepam. I will appreciate for further neurology recommendations. 3. Acute hypoxic respiratory failure due to recurrent seizure, requiring intubation for airway protection, status post extubation on 07/17/2019. 4. Left lower lobe pneumonia. This could be aspiration pneumonia, though the sputum is growing Staphylococcus aureus which is sensitive to methicillin. I will change his antibiotics to Augmentin to cover for staphylococcus as well as anaerobes. 5. Acute kidney injury and lactic acidosis have now resolved. I will monitor his liver function tests. 6. Recreational substance abuse and history of mood disorder. I counseled him about stopping recreational substance use. He agreed. DISPOSITION: I will monitor the patient inside the hospital for at least 24 hours to make sure he is hemodynamically stable and does not have any more withdrawal. Then we will consider discharging him. His family is working on setting him up with outpatient rehab. I discussed the plan of care with his father at bedside today. cc: Wyatt Earl MD
[2019-07-19] MEDS: KEPPRA 750 MG in NS 100 ML IV SCH ×2 (12:07→23:08)
--- NOTE | 2019-07-19 13:04 | PROVIDER PROGRESS NOTE ---
Progress Note Dr. Mahajan Progress Note/Pulmonary and or critical care We appreciated progress of care, Complications, change in diagnosis, and instructions to patient under direct supervision of Dr. Mahajan. Subjective: We note the level of consciousness, bed (chair) position, family presence (if any), level of lethargy, feeling of symptoms, and changes from baseline condition/symptom. The patient feels: better c/o muscle spasm on BLE. Patient is on room air and toleraes well. report no cough/sob/sore throat/pleurisy. Patient's grandmother is at the bedside. Vital Signs: We reviewed EMR current values for Pulse rate, Blood pressure, Pulse rate, respiratory rate and Pulse oximetry. Also noted other values and trends if present (e.g. I/O, CVP). Vital Signs 07/18/19 17:30 07/18/19 18:00 07/18/19 18:30 Temperature Pulse Rate 50 L 48 L 46 L Respiratory Rate 20 27 H 24 Blood Pressure 97/44 O2 Sat by Pulse Oximetry 96 94 L 95 07/18/19 19:00 07/18/19 19:01 07/18/19 19:30 Temperature Pulse Rate 52 L 60 59 L Respiratory Rate 8 L 20 21 Blood Pressure 125/53 O2 Sat by Pulse Oximetry 96 98 99 07/18/19 20:00 07/18/19 20:30 07/18/19 21:00 Temperature 98.6 F Pulse Rate 55 L 57 L 52 L Respiratory Rate 26 H 17 25 H Blood Pressure 125/53 O2 Sat by Pulse Oximetry 95 98 95 07/18/19 21:30 07/18/19 22:00 07/18/19 22:28 Temperature Pulse Rate 57 L 48 L 53 L Respiratory Rate 21 24 15 Blood Pressure 118/49 O2 Sat by Pulse Oximetry 96 95 96 07/18/19 22:30 07/18/19 23:00 07/18/19 23:02 Temperature Pulse Rate 57 L 58 L 61 Respiratory Rate 20 20 26 H Blood Pressure 134/69 O2 Sat by Pulse Oximetry 99 97 99 07/18/19 23:03 07/18/19 23:30 07/19/19 00:00 Temperature 99.0 F Pulse Rate 62 54 L 55 L Respiratory Rate 25 H 19 24 Blood Pressure 106/50 O2 Sat by Pulse Oximetry 97 97 96 07/19/19 00:01 07/19/19 00:16 07/19/19 00:30 Temperature Pulse Rate 55 L 59 L 56 L Respiratory Rate 24 13 Blood Pressure 106/50 O2 Sat by Pulse Oximetry 96 97 07/19/19 01:07 07/19/19 04:00 07/19/19 08:01 Temperature 98.8 F 98.5 F 98.8 F Pulse Rate 53 L 62 56 L Respiratory Rate 20 20 16 Blood Pressure 132/51 144/61 107/50 O2 Sat by Pulse Oximetry 97 98 97 07/19/19 11:37 07/19/19 15:03 Temperature 98.3 F Pulse Rate 54 L 61 Respiratory Rate 18 16 Blood Pressure 119/53 128/74 O2 Sat by Pulse Oximetry 97 99 Intake & Output 07/18/19 07/19/19 07/19/19 19:59 07:59 19:59 Intake Total 1000 / 1640 640 / 1640 416 / 416 Output Total 400 / 1420 1020 / 1420 Balance 600 / 220 -380 / 220 416 / 416 Intake: Intake, IV Amount 560 / 910 350 / 910 Intake, IVPB 200 / 350 150 / 350 Intake, Oral Amount 240 / 380 140 / 380 416 / 416 Output: Output, Urine Void Amount 400 / 400 Output, Urine Loja Amount 1020 / 1020 Other: Percent of Meal Consumed 50% 0 50% Number of Continent Voids Not 3 Measured Number of Bowel Movements 2 1 Bowel Movement Color and Liquid Character Brown Objective: We examined the following systems General and HEENT: No significant findings. Chest: Nosignificant findings. CVS: S1 S2. Abdomen: Bowel Sounds present. Non-tender. Soft. Nondistended. Extremities: No pedal edema Neuro: Alert. Labs and Radiology: Reviewed available labs and radiology values available at time of EMR review. Laboratory Results 07/18/19 07/19/19 07/19/19 23:39 00:23 06:03 WBC RBC Hgb Hct MCV MCH MCHC RDW Std Deviation Plt Count MPV Immature Gran % (Auto) Neut % (Auto) Lymph % (Auto) Marion % (Auto) Eos % (Auto) Baso % (Auto) Immature Gran # (Auto) Neut # (Auto) Lymph # (Auto) Marion # (Auto) Eos # (Auto) Baso # (Auto) Sodium Potassium Chloride Carbon Dioxide Anion Gap BUN Creatinine Estimated GFR/1.73 m2 BUN/Creatinine Ratio Glucose POC Glucose 78 78 77 Calculated Osmolality Calcium Total Bilirubin AST ALT Alkaline Phosphatase Total Protein Albumin Globulin Albumin/Globulin Ratio 07/19/19 07/19/19 07/19/19 08:28 08:28 11:37 WBC 8.21 RBC 4.50 L Hgb 13.7 L Hct 39.8 L MCV 88.4 MCH 30.4 MCHC 34.4 RDW Std Deviation 11.4 L Plt Count 148 MPV 10.9 H Immature Gran % (Auto) 0.0 Neut % (Auto) 74.9 Lymph % (Auto) 13.6 L Marion % (Auto) 8.6 Eos % (Auto) 2.8 Baso % (Auto) 0.1 Immature Gran # (Auto) 0.00 Neut # (Auto) 6.14 Lymph # (Auto) 1.12 L Marion # (Auto) 0.71 H Eos # (Auto) 0.23 Baso # (Auto) 0.01 Sodium 146 H Potassium 4.0 Chloride 107 Carbon Dioxide 24 L Anion Gap 15 BUN 7 L Creatinine 0.8 Estimated GFR/1.73 m2 > 60 BUN/Creatinine Ratio 9 Glucose 89 POC Glucose 68 L Calculated Osmolality 288 Calcium 9.5 Total Bilirubin 0.67 AST 116 H ALT 60 H Alkaline Phosphatase 53 Total Protein 6.8 Albumin 4.2 Globulin 2.6 Albumin/Globulin Ratio 1.6 07/19/19 16:32 WBC RBC Hgb Hct MCV MCH MCHC RDW Std Deviation Plt Count MPV Immature Gran % (Auto) Neut % (Auto) Lymph % (Auto) Marion % (Auto) Eos % (Auto) Baso % (Auto) Immature Gran # (Auto) Neut # (Auto) Lymph # (Auto) Marion # (Auto) Eos # (Auto) Baso # (Auto) Sodium Potassium Chloride Carbon Dioxide Anion Gap BUN Creatinine Estimated GFR/1.73 m2 BUN/Creatinine Ratio Glucose POC Glucose 78 Calculated Osmolality Calcium Total Bilirubin AST ALT Alkaline Phosphatase Total Protein Albumin Globulin Albumin/Globulin Ratio Dr. Mahajan evaluated and additional note below. Evaluation time in minutes: More than 30 minutes Assessment: Respiratory failure, extubated on 07/17 Pneumonia, BLL Substance abuse Generalized tonic-clonic seizure Plan Continue current treatment and supportive care per admitting and other teams on the case. Antibiotics Appropriate DVT and GI prophylaxis Input was appreciated from Admitting MD and other teams on the case.
[2019-07-19] MEDS: ATIVAN IV PRN (16:26)
[2019-07-19] MEDS ORDERED: AUGMENTIN PO SCH (21:00)
[2019-07-19] MEDS: DOXYCYCLINE PO SCH (21:15)
[2019-07-19] MEDS: MELATONIN PO SCH (21:16)
[2019-07-19] MEDS: LOVENOX SUBQ SCH (21:16)
[2019-07-20 07:54] LABS: BASO# 0.02 X1000 (0.0-0.2); BASO% 0.3 % (0.0-0.8); EOS# 0.37 X1000 (0.0-0.7); EOS% 4.9 % (0.0-10.0); HEMATOCRIT 42.4 % (42.0-52.0); HEMOGLOBIN 14.6 g/dL (14.0-18.0); IMM GRAN# 0.02 X1000 (0.0-0.04); IMM GRAN% 0.3 % (0.0-0.5); LYMPH# 1.76 X1000 (1.2-3.4); LYMPH% 23.1 % (20.5-51.1); MCH 30.9 PG (27-31); MCHC 34.4 g/dL (33-37); MCV 89.8 FL (81-99); MONO# 0.69 X1000 (0.11-0.59); MONO% 9.1 % (1.7-9.3); MPV 10.7 FL (7.4-10.4); NEUT# 4.75 X1000 (1.4-6.5); NEUT% 62.3 % (42.2-75.2); PLT 174 X1000 (130-400); RBC 4.72 XMIL (4.7-6.1); RDW 11.6 % (11.5-14.5); WBC 7.61 X1000 (4.8-10.8)
[2019-07-20 08:42] LABS: AGAP 15; ALB/GLOB RATIO 1.5; ALKALINE PHOSPHATASE 52 U/L (32-122); BUN 13 mg/dL (8-22); CALCIUM 9.4 mg/dL (8.8-10.2); CHLORIDE 104 mmol/L (98-107); COSMO 283; CREATININE 0.7 mg/dL (0.7-1.2); ESTIMATED GFR > 60; GLUCOSE 57 mg/dL (70-104); GOT 100 U/L (10-34); GPT 65 U/L (10-44); SODIUM 143 mmol/L (136-145); TCO2 24 mmol/L (25-35); TOTAL BILIRUBIN 0.46 mg/dL (0.20-1.00); TOTAL PROTEIN 6.7 g/dL (6.3-8.3)
[2019-07-20] MEDS: KLONOPIN PO SCH ×2 (10:01→22:11)
[2019-07-20] MEDS: CULTURELLE PO SCH ×2 (10:02→22:08)
[2019-07-20] MEDS: AUGMENTIN PO SCH ×2 (10:02→22:08)
[2019-07-20] MEDS: DOXYCYCLINE PO SCH ×2 (10:02→22:08)
[2019-07-20] MEDS: KEPPRA 750 MG in NS 100 ML IV SCH (11:35)
--- NOTE | 2019-07-20 12:25 | PROVIDER PROGRESS NOTE ---
Progress Note Dr. Mahajan Progress Note/Pulmonary and or critical care We appreciated progress of care, Complications, change in diagnosis, and instructions to patient under direct supervision of Dr. Mahajan. Subjective: We note the level of consciousness, bed (chair) position, family presence (if any), level of lethargy, feeling of symptoms, and changes from baseline condition/symptom. The patient feels: better c/o soreness around the thigh area b/l; c/o diarrhea and has 2 episodes since this am. Has occasional productive cough with yellowish thick sputum. Has been walking around the [address]. BS 57 this am. Vital Signs: We reviewed EMR current values for Pulse rate, Blood pressure, Pulse rate, respiratory rate and Pulse oximetry. Also noted other values and trends if present (e.g. I/O, CVP). Vital Signs 07/19/19 15:50 07/19/19 19:50 07/19/19 20:53 Temperature 98.7 F Pulse Rate 54 L Respiratory Rate 17 Blood Pressure 120/62 O2 Sat by Pulse Oximetry 97 99 97 07/19/19 23:32 07/20/19 04:38 07/20/19 07:53 Temperature 98.4 F 98.6 F 97.9 F Pulse Rate 55 L 50 L 63 Respiratory Rate 14 12 14 Blood Pressure 117/50 106/50 120/53 O2 Sat by Pulse Oximetry 97 96 99 07/20/19 10:01 07/20/19 11:41 Temperature 97.6 F Pulse Rate 51 L Respiratory Rate 14 Blood Pressure 112/50 O2 Sat by Pulse Oximetry 99 99 Intake & Output 07/19/19 07/20/19 07/20/19 19:59 07:59 19:59 Intake Total 416 / 1482 1066 / 1482 200 / 200 Balance 416 / 1482 1066 / 1482 200 / 200 Intake: Intake, IV Amount 82 / 82 Intake, Oral Amount 416 / 1400 984 / 1400 200 / 200 Other: Percent of Meal Consumed 50% 75% Number of Continent Voids Not 3 3 2 Measured Number of Bowel Movements 1 0 2 Objective: We examined the following systems General and HEENT: No significant findings. Chest: Nosignificant findings. CVS: S1 S2. Abdomen: Bowel Sounds present. Non-tender. Soft. Non-distended. Extremities: No pedal edema Neuro: Alert/oriented x4. Labs and Radiology: Reviewed available labs and radiology values available at time of EMR review. Laboratory Results 07/19/19 07/19/19 07/20/19 16:32 21:56 04:40 WBC RBC Hgb Hct MCV MCH MCHC RDW Std Deviation Plt Count MPV Immature Gran % (Auto) Neut % (Auto) Lymph % (Auto) Angelina % (Auto) Eos % (Auto) Baso % (Auto) Immature Gran # (Auto) Neut # (Auto) Lymph # (Auto) Angelina # (Auto) Eos # (Auto) Baso # (Auto) Sodium Potassium Chloride Carbon Dioxide Anion Gap BUN Creatinine Estimated GFR/1.73 m2 BUN/Creatinine Ratio Glucose POC Glucose 78 82 66 L Calculated Osmolality Calcium Total Bilirubin AST ALT Alkaline Phosphatase Total Protein Albumin Globulin Albumin/Globulin Ratio 07/20/19 07/20/19 07/20/19 06:42 06:42 10:45 WBC 7.61 RBC 4.72 Hgb 14.6 Hct 42.4 MCV 89.8 MCH 30.9 MCHC 34.4 RDW Std Deviation 11.6 Plt Count 174 MPV 10.7 H Immature Gran % (Auto) 0.3 Neut % (Auto) 62.3 Lymph % (Auto) 23.1 Angelina % (Auto) 9.1 Eos % (Auto) 4.9 Baso % (Auto) 0.3 Immature Gran # (Auto) 0.02 Neut # (Auto) 4.75 Lymph # (Auto) 1.76 Angelina # (Auto) 0.69 H Eos # (Auto) 0.37 Baso # (Auto) 0.02 Sodium 143 Potassium 4.0 Chloride 104 Carbon Dioxide 24 L Anion Gap 15 BUN 13 D Creatinine 0.7 Estimated GFR/1.73 m2 > 60 BUN/Creatinine Ratio 19 Glucose 57 L POC Glucose 84 Calculated Osmolality 283 Calcium 9.4 Total Bilirubin 0.46 AST 100 H ALT 65 H Alkaline Phosphatase 52 Total Protein 6.7 Albumin 4.0 Globulin 2.7 Albumin/Globulin Ratio 1.5 Dr. Mahajan evaluated and additional note below. Evaluation time in minutes: 10 minutes Assessment: Respiratory failure, extubated on 07/17 Pneumonia, BLL Substance abuse Generalized tonic-clonic seizure Plan Continue current treatment and supportive care per admitting and other teams on the case. Antibiotics Appropriate DVT and GI prophylaxis Input was appreciated from Admitting MD and other teams on the case.
[2019-07-20] MEDS: TYLENOL PO PRN (13:52)
[2019-07-20] MEDS: ULTRAM PO PRN (18:47)
--- NOTE | 2019-07-20 22:05 | PROGRESS NOTE ---
DATE: 07/20/2019 SUBJECTIVE: The patient is resting comfortably. He complains of pain in his feet. OBJECTIVE: Vital Signs: Temperature 98.6 degrees, blood pressure 110/72, heart rate 57, respirations 18, O2 saturation 98% on room air. General: This is a young male lying in bed in no acute distress. Heart: S1, S2 normal. Bradycardic. Lungs: Clear to auscultation bilaterally. Abdomen: Positive bowel sounds. Soft, nontender, nondistended. Extremities: No edema. No cyanosis. Neurologic: The patient is alert and oriented x4. LABS: Sodium 143, potassium 4, chloride 104, CO2 24, BUN 13, creatinine 0.7, glucose 57. White blood cell count 7.6, hemoglobin 14, hematocrit 42, platelets 174,000. ASSESSMENT AND PLAN: 1. Benzodiazepine withdrawal. Slowly improving. The patient is currently on Klonopin. 2. Seizure disorder. The patient is on Keppra. No further seizure activity has been noted here in the hospital. We will continue on this medication at this time. 3. Recreational substance abuse. The patient reports that he has been taking Xanax for several years. He states that it was not prescribed by a physician, however. He is interested in substance abuse rehab. [employer] [facility] has been consulted to assist with placement for the patient. 4. Pneumonia. Improved. Continue with the current antibiotic regimen. 5. Diarrhea. We will check stool for Clostridium difficile since the patient is on antibiotics. We will also add lactobacillus. 6. Insomnia. The patient is on melatonin. 7. Deep vein thrombosis prophylaxis. Continue on Lovenox. cc: Michelle Vinson MD
[2019-07-20] MEDS: MELATONIN PO SCH (22:07)
[2019-07-20] MEDS: KEPPRA PO SCH (22:08)
[2019-07-20] MEDS: LOVENOX SUBQ SCH (22:11)
[2019-07-20] MEDS: ATIVAN IV PRN (23:50)
[2019-07-21] MEDS: TYLENOL PO PRN ×2 (05:47→16:09)
[2019-07-21 07:50] LABS: AGAP 15; BUN 12 mg/dL (8-22); CALCIUM 9.5 mg/dL (8.8-10.2); CHLORIDE 98 mmol/L (98-107); COSMO 271; CREATININE 0.8 mg/dL (0.7-1.2); ESTIMATED GFR > 60; GLUCOSE 113 mg/dL (70-104); POTASSIUM 3.7 mmol/L (3.5-5.1); SODIUM 135 mmol/L (136-145); TCO2 22 mmol/L (25-35)
[2019-07-21] MEDS: DOXYCYCLINE PO SCH ×2 (08:20→22:31)
[2019-07-21] MEDS: CULTURELLE PO SCH ×2 (08:21→22:31)
[2019-07-21] MEDS: KLONOPIN PO SCH ×2 (08:21→22:31)
[2019-07-21] MEDS: AUGMENTIN PO SCH ×2 (08:21→22:30)
[2019-07-21] MEDS: KEPPRA PO SCH ×2 (10:12→22:31)
[2019-07-21] MEDS: NEURONTIN PO SCH ×3 (10:12→22:31)
[2019-07-21] MEDS: ATIVAN IV PRN (11:10)
[2019-07-21] MEDS: ULTRAM PO PRN ×2 (11:33→17:53)
--- NOTE | 2019-07-21 12:48 | PROVIDER PROGRESS NOTE ---
Progress Note Dr. Mahajan Progress Note/Pulmonary and or critical care We appreciated progress of care, Complications, change in diagnosis, and instructions to patient under direct supervision of Dr. Mahajan. Subjective: We note the level of consciousness, bed (chair) position, family presence (if any), level of lethargy, feeling of symptoms, and changes from baseline condition/symptom. The patient feels: better c/o diarrhea. Stool sample collected. Parents at the bedside. Vital Signs: We reviewed EMR current values for Pulse rate, Blood pressure, Pulse rate, respiratory rate and Pulse oximetry. Also noted other values and trends if present (e.g. I/O, CVP). Vital Signs 07/20/19 16:02 07/20/19 19:44 07/20/19 23:26 Temperature 98.6 F 99.7 F H 99.5 F Pulse Rate 57 L 58 L 68 Respiratory Rate 18 19 20 Blood Pressure 110/72 128/73 130/68 O2 Sat by Pulse Oximetry 98 100 99 07/21/19 04:00 07/21/19 05:31 07/21/19 07:26 Temperature 99.7 F H 98.2 F Pulse Rate 94 H 65 64 Respiratory Rate 20 16 19 Blood Pressure 121/64 109/53 O2 Sat by Pulse Oximetry 99 98 98 07/21/19 09:06 07/21/19 12:55 Temperature 99.2 F Pulse Rate 85 Respiratory Rate 17 Blood Pressure 132/70 O2 Sat by Pulse Oximetry 98 99 Intake & Output 07/20/19 07/21/19 07/21/19 19:59 07:59 19:59 Intake Total 200 / 436 236 / 436 Balance 200 / 436 236 / 436 Intake: Intake, Oral Amount 200 / 436 236 / 436 Other: Percent of Meal Consumed 75% Number of Continent Voids Not 2 1 Measured Number of Bowel Movements 2 1 Objective: We examined the following systems General and HEENT: No significant findings. Chest: Nosignificant findings. CVS: S1 S2. Abdomen: Bowel Sounds present. Non-tender. Soft. Non-distended. Extremities: No pedal edema Neuro: Alert/oriented x4. Labs and Radiology: Reviewed available labs and radiology values available at time of EMR review. Laboratory Results 07/20/19 07/20/19 07/20/19 17:46 18:52 22:16 Sodium Potassium Chloride Carbon Dioxide Anion Gap BUN Creatinine Estimated GFR/1.73 m2 BUN/Creatinine Ratio Glucose POC Glucose 63 L 74 74 Calculated Osmolality Calcium 07/21/19 07/21/19 07/21/19 05:36 06:15 10:40 Sodium 135 L Potassium 3.7 Chloride 98 Carbon Dioxide 22 L Anion Gap 15 BUN 12 Creatinine 0.8 Estimated GFR/1.73 m2 > 60 BUN/Creatinine Ratio 15 Glucose 113 H D POC Glucose 72 76 Calculated Osmolality [address] Mahajan evaluated and additional note below. Evaluation time in minutes: 10 minutes Assessment: Respiratory failure, extubated on 07/17 Pneumonia, BLL Substance abuse Generalized tonic-clonic seizure Plan Continue current treatment and supportive care per admitting and other teams on the case. Antibiotics Appropriate DVT and GI prophylaxis Input was appreciated from Admitting MD and other teams on the case.
[2019-07-21 17:10] LABS: BASO# 0.01 X1000 (0.0-0.2); BASO% 0.2 % (0.0-0.8); EOS# 0.04 X1000 (0.0-0.7); EOS% 0.7 % (0.0-10.0); HEMATOCRIT 41.5 % (42.0-52.0); HEMOGLOBIN 14.4 g/dL (14.0-18.0); IMM GRAN# 0.02 X1000 (0.0-0.04); IMM GRAN% 0.4 % (0.0-0.5); LYMPH# 1.07 X1000 (1.2-3.4); LYMPH% 19.1 % (20.5-51.1); MCH 30.7 PG (27-31); MCHC 34.7 g/dL (33-37); MCV 88.5 FL (81-99); MONO# 0.67 X1000 (0.11-0.59); MONO% 11.9 % (1.7-9.3); MPV 10.2 FL (7.4-10.4); NEUT% 67.7 % (42.2-75.2); PLT 192 X1000 (130-400); RBC 4.69 XMIL (4.7-6.1); RDW 11.5 % (11.5-14.5); WBC 5.61 X1000 (4.8-10.8)
--- NOTE | 2019-07-21 17:40 | Diag Imaging Result Doc PS360 ---
EXAM: CHEST-1 VIEW INDICATION: pneumonia TECHNIQUE: One view COMPARISON: 07/19/2019 FINDINGS: The left lower lobe infiltrate seen previously has grossly resolved. No new consolidation is identified. There is no discrete pleural fluid collection or pneumothorax. The cardiomediastinal silhouette and central vasculature are grossly unremarkable. IMPRESSION: Gross resolution of the left lower lobe consolidation by plain radiograph. Electronically signed by Huy Keene 07/21/2019 5:38 PM
[2019-07-21 18:53] LABS: URINE SOURCE CLEAN CATCH
[2019-07-21 19:05] LABS: BILIRUBIN URINE NEGATIVE (NEGATIVE); BLOOD URINE NEGATIVE (NEGATIVE); COLOR STRAW; GLUCOSE URINE NEGATIVE (NEGATIVE); KETONE URINE NEGATIVE (NEGATIVE); LEUKOCYTES URINE NEGATIVE (NEGATIVE); NITRITE URINE NEGATIVE (NEGATIVE); PH URINE 6.5; PROTEIN URINE NEGATIVE (NEGATIVE); SP GRAVITY URINE 1.005; TURBIDITY URINE CLEAR (CLEAR); UROBILINOGEN URINE NORMAL (NORMAL)
[2019-07-21 19:06] LABS: UR EPITHELIAL CELLS <10 /HPF (<10); URINE BACTERIA NEGATIVE /HPF; URINE RBC <10 /HPF (<10); URINE WBC <10 /HPF (<10)
[2019-07-21] MEDS: NS 1,000 ML IV SCH (22:31)
[2019-07-21] MEDS: LOVENOX SUBQ SCH (22:31)
[2019-07-21] MEDS: MELATONIN PO SCH (22:31)
--- NOTE | 2019-07-22 03:47 | PROGRESS NOTE ---
DATE: 07/21/2019 SUBJECTIVE: The patient is resting comfortably in bed. He complains of pain in the back of his legs. Also, the patient appears to have developed a fever of 102.8 degrees. OBJECTIVE: Vital Signs: T-max 102.8 degrees, blood pressure 130/66, heart rate 87, respirations 17, O2 saturation 97% on room air. General: This is a young male, sitting up in bed in no acute distress. Heart: S1, S2 normal. Regular rate and rhythm. Lungs: Clear to auscultation bilaterally. No wheezing. No rales. No rhonchi. Abdomen: Positive bowel sounds. Soft, nontender, nondistended. Extremities: No edema. No cyanosis. Neurologic: The patient is alert and oriented x4. LABS: Sodium 135, potassium 3.7, chloride 98, CO2 22, BUN 12, creatinine 0.8, glucose 113, calcium 9.5. ASSESSMENT AND PLAN: 1. Acute hypoxemic respiratory failure, status post extubation. The patient is on room air. 2. Rhabdomyolysis. Will start IV fluids. 3. Bilateral lobe pneumonia, improved. The patient is on broad-spectrum antibiotics. 4. Fever. We will order blood cultures, a chest x-ray, and a urinalysis. Continue on the current antibiotic regimen. 5. Diarrhea, improved. 6. Recreational substance abuse. [facility] is coming to assess the patient for inpatient admission to their facility. 7. Seizure disorder. Continue on Keppra. 8. Benzodiazepine withdrawal, improved. The patient is currently on Klonopin. 9. Insomnia. Continue on melatonin. 10. Deep vein thrombosis prophylaxis. Continue on Lovenox. cc: Michelle Vinson MD [facility]
[2019-07-22] MEDS: NS 1,000 ML IV SCH ×4 (04:32→19:00)
[2019-07-22] MEDS: ULTRAM PO PRN (04:33)
[2019-07-22 06:49] LABS: HEMOGLOBIN 13.3 g/dL (14.0-18.0); MCHC 34.1 g/dL (33-37); MCV 90.9 FL (81-99); MPV 9.9 FL (7.4-10.4); RBC 4.29 XMIL (4.7-6.1); RDW 11.8 % (11.5-14.5); WBC 4.63 X1000 (4.8-10.8)
[2019-07-22 07:16] LABS: AGAP 12; BUN 13 mg/dL (8-22); CALCIUM 8.5 mg/dL (8.8-10.2); CHLORIDE 102 mmol/L (98-107); COSMO 277; CREATININE 0.7 mg/dL (0.7-1.2); ESTIMATED GFR > 60; GLUCOSE 78 mg/dL (70-104); SODIUM 139 mmol/L (136-145); TCO2 25 mmol/L (25-35)
[2019-07-22 07:41] LABS: ALB/GLOB RATIO 1.7; ALBUMIN 3.8 g/dL (3.5-5.0); DIRECT BILIRUBIN 0.1 mg/dL (0.00-0.20); TOTAL BILIRUBIN 0.22 mg/dL (0.20-1.00)
[2019-07-22] MEDS: CULTURELLE PO SCH ×2 (08:14→22:12)
[2019-07-22] MEDS: AUGMENTIN PO SCH ×2 (08:14→22:12)
[2019-07-22] MEDS: DOXYCYCLINE PO SCH ×2 (08:14→22:12)
[2019-07-22] MEDS: NEURONTIN PO SCH ×3 (08:15→22:16)
[2019-07-22] MEDS: KLONOPIN PO SCH ×2 (08:15→22:11)
[2019-07-22] MEDS: TYLENOL PO PRN ×3 (08:41→23:13)
[2019-07-22] MEDS: KEPPRA PO SCH ×2 (12:38→22:11)
--- NOTE | 2019-07-22 15:50 | PROGRESS NOTE ---
DATE: 07/22/2019 Mr. Lerma had presented after a starr seizure with likely benzodiazepine withdrawal etiology. He has had a stable course over the last week or so. There have been some recent behaviors raising question of further seizure. Patient reports he sometimes has a sense that "I know what is going on, but it is hard, you know?" and he cannot describe that odd sense any more precisely. Parents at the bedside have noticed him to seem at times to be slow to respond and particularly slow to respond verbally. For example, father reports asking him to locate his pain and rather than responding verbally, the patient seemed to feebly point to his thigh. Family provides history of 2017 seizure, which was reported to be an isolated single episode and was attributed to drug use. Family believes the etiology was combination of hydrocodone and Vyvanse. After questioning the patient today, it seems there was also likely benzodiazepine withdrawal as a contributor to the 2017 episode. The patient and family report no other seizure history. We discussed benzodiazepine habituation, withdrawal, and seizure risk. Here, he is receiving lorazepam 1 mg daily and clonazepam 0.25 mg b.i.d. He has also had some doses of tramadol. We discussed potential "lowered seizure threshold" with tramadol. I suspect his seizures have been related to benzodiazepine withdrawal and that if he will avoid that state, he will be seizure-free without medicine to control seizures. However, in light of the recent history, I think it is reasonable to continue medications for seizure control. We discussed potential adverse effect on personality in certain cases with levetiracetam and I think it would be reasonable to use a different drug. We discussed several of these and decided to start oxcarbazepine. Eventually, we might reduce and stop levetiracetam, titrate and continue oxcarbazepine and then, after 3 to 6 months if he continues seizure-free, consider stopping oxcarbazepine and following him without seizure medicine. [facility] to [facility]. Patient and parents expressed understanding. Thanks for asking Neurology to see Mr. Lerma again. cc: MD ESTELLA Younger III
--- NOTE | 2019-07-22 16:46 | PROVIDER PROGRESS NOTE ---
Progress Note Dr. Mahajan Progress Note/Pulmonary and or critical care We appreciated progress of care, Complications, change in diagnosis, and instructions to patient under direct supervision of Dr. Mahajan. Subjective: We note the level of consciousness, bed (chair) position, family presence (if any), level of lethargy, feeling of symptoms, and changes from baseline condition/symptom. The patient is walking in the hallway. He is on room air with no SOB. He is feeling better. 1 episode of diarrhea today. Father and niece at the bedside. Objective: Vital Signs: We reviewed EMR current values for Pulse rate, Blood pressure, Pulse rate, respiratory rate and Pulse oximetry. Also noted other values and trends if present (e.g. I/O, CVP). Vital Signs 07/21/19 17:35 07/21/19 20:00 07/22/19 00:00 Temperature 99.7 F H 98.0 F 97.9 F Pulse Rate 61 55 L Respiratory Rate 20 20 Blood Pressure 130/60 118/55 O2 Sat by Pulse Oximetry 99 99 07/22/19 04:00 07/22/19 12:00 Temperature 97.9 F 98.1 F Pulse Rate 51 L 51 L Respiratory Rate 20 14 Blood Pressure 124/70 116/45 O2 Sat by Pulse Oximetry 100 99 Intake & Output 07/21/19 07/22/19 07/22/19 19:59 07:59 19:59 Intake Total 645 / 945 300 / 945 600 / 600 Balance 645 / 945 300 / 945 600 / 600 Intake: Intake, Oral Amount 645 / 945 300 / 945 600 / 600 Other: Percent of Meal Consumed 75% 50% 50% Number of Continent Voids Not 3 1 2 Measured Number of Bowel Movements 1 1 Physical Examination: General: Walking in the hallway with no acute distress noted. HEENT: Trachea midline. Mucosa pink and moist. Chest: Even and unlabored. Symmetrical excursion. Clear to auscultation bilaterally CVS: Regular rate and rhythm. Abdomen: Soft. Non-distended. Non-tender. Normoactive bowel sounds in all 4 quadrants. Extremities: No pedal edema. Neuro: A/Ox3. Speech fluent. Follow simple commands. Labs and Radiology: Reviewed available labs and radiology values available at time of EMR review. Laboratory Results 07/21/19 07/21/19 07/21/19 16:50 16:50 17:45 WBC 5.61 RBC 4.69 L Hgb 14.4 Hct 41.5 L MCV 88.5 MCH 30.7 MCHC 34.7 RDW Std Deviation 11.5 Plt Count 192 MPV 10.2 Immature Gran % (Auto) 0.4 Neut % (Auto) 67.7 Lymph % (Auto) 19.1 L Maury % (Auto) 11.9 H Eos % (Auto) 0.7 Baso % (Auto) 0.2 Immature Gran # (Auto) 0.02 Neut # (Auto) 3.80 Lymph # (Auto) 1.07 L Maury # (Auto) 0.67 H Eos # (Auto) 0.04 Baso # (Auto) 0.01 Sodium Potassium Chloride Carbon Dioxide Anion Gap BUN Creatinine Estimated GFR/1.73 m2 BUN/Creatinine Ratio Glucose POC Glucose 96 Calculated Osmolality Calcium Total Bilirubin Direct Bilirubin AST ALT Alkaline Phosphatase Creatine Kinase 4423 H Total Protein Albumin Globulin Albumin/Globulin Ratio Urine Source Urine Color Urine Turbidity Urine pH Ur Specific Lincoln Urine Protein Ur Glucose (Stick) Ur Ketones (Stick) Urine Blood Urine Nitrite Urine Bilirubin Urobilinogen Dipstick Urine Leukocytes Urine WBC (Auto) Urine RBC (Auto) U Epithel Cells (Auto) Urine Bacteria (Auto) 07/21/19 07/22/19 07/22/19 18:35 00:01 04:58 WBC RBC Hgb Hct MCV MCH MCHC RDW Std Deviation Plt Count MPV Immature Gran % (Auto) Neut % (Auto) Lymph % (Auto) Maury % (Auto) Eos % (Auto) Baso % (Auto) Immature Gran # (Auto) Neut # (Auto) Lymph # (Auto) Maury # (Auto) Eos # (Auto) Baso # (Auto) Sodium Potassium Chloride Carbon Dioxide Anion Gap BUN Creatinine Estimated GFR/1.73 m2 BUN/Creatinine Ratio Glucose POC Glucose 65 L 85 Calculated Osmolality Calcium Total Bilirubin Direct Bilirubin AST ALT Alkaline Phosphatase Creatine Kinase Total Protein Albumin Globulin Albumin/Globulin Ratio Urine Source CLEAN CATCH Urine Color STRAW Urine Turbidity CLEAR Urine pH 6.5 Ur Specific Lincoln 1.005 Urine Protein NEGATIVE Ur Glucose (Stick) NEGATIVE Ur Ketones (Stick) NEGATIVE Urine Blood NEGATIVE Urine Nitrite NEGATIVE Urine Bilirubin NEGATIVE Urobilinogen Dipstick NORMAL Urine Leukocytes NEGATIVE Urine WBC (Auto) <10 Urine RBC (Auto) <10 U Epithel Cells (Auto) <10 Urine Bacteria (Auto) NEGATIVE 07/22/19 07/22/19 07/22/19 06:24 06:24 06:24 WBC 4.63 L RBC 4.29 L Hgb 13.3 L Hct 39.0 L MCV 90.9 MCH 31.0 MCHC 34.1 RDW Std Deviation 11.8 Plt Count 163 MPV 9.9 Immature Gran % (Auto) Neut % (Auto) Lymph % (Auto) Maury % (Auto) Eos % (Auto) Baso % (Auto) Immature Gran # (Auto) Neut # (Auto) Lymph # (Auto) Maury # (Auto) Eos # (Auto) Baso # (Auto) Sodium 139 Potassium 4.0 Chloride 102 Carbon Dioxide 25 Anion Gap 12 BUN 13 Creatinine 0.7 Estimated GFR/1.73 m2 > 60 BUN/Creatinine Ratio 19 Glucose 78 POC Glucose Calculated Osmolality 277 Calcium 8.5 L Total Bilirubin 0.22 Direct Bilirubin 0.10 AST 54 H ALT 55 H Alkaline Phosphatase 50 Creatine Kinase 2690 H Total Protein 6.0 L Albumin 3.8 Globulin 2.2 Albumin/Globulin Ratio 1.7 Urine Source Urine Color Urine Turbidity Urine pH Ur Specific Lincoln Urine Protein Ur Glucose (Stick) Ur Ketones (Stick) Urine Blood Urine Nitrite Urine Bilirubin Urobilinogen Dipstick Urine Leukocytes Urine WBC (Auto) Urine RBC (Auto) U Epithel Cells (Auto) Urine Bacteria (Auto) 07/22/19 12:37 WBC RBC Hgb Hct MCV MCH MCHC RDW Std Deviation Plt Count MPV Immature Gran % (Auto) Neut % (Auto) Lymph % (Auto) Maury % (Auto) Eos % (Auto) Baso % (Auto) Immature Gran # (Auto) Neut # (Auto) Lymph # (Auto) Maury # (Auto) Eos # (Auto) Baso # (Auto) Sodium Potassium Chloride Carbon Dioxide Anion Gap BUN Creatinine Estimated GFR/1.73 m2 BUN/Creatinine Ratio Glucose POC Glucose 83 Calculated Osmolality Calcium Total Bilirubin Direct Bilirubin AST ALT Alkaline Phosphatase Creatine Kinase Total Protein Albumin Globulin Albumin/Globulin Ratio Urine Source Urine Color Urine Turbidity Urine pH Ur Specific Lincoln Urine Protein Ur Glucose (Stick) Ur Ketones (Stick) Urine Blood Urine Nitrite Urine Bilirubin Urobilinogen Dipstick Urine Leukocytes Urine WBC (Auto) Urine RBC (Auto) U Epithel Cells (Auto) Urine Bacteria (Auto) Dr. Mahajan evaluated and additional note below. Evaluation time in minutes: 10 mins Assessment: Acute hypoxic respiratory failure. Improved. Pneumonia, BLL Substance abuse Generalized tonic-clonic seizure Plan: Continue current treatment and supportive care per admitting and other teams on the case. Antibiotics. Encourage incentive spirometer, deep breathing and cough. Appropriate DVT and GI prophylaxis Discharge planning by Hospitalist Input was appreciated from Admitting MD and other teams on the case.
[2019-07-22] MEDS: TRILEPTAL PO SCH (22:12)
[2019-07-22] MEDS: MELATONIN PO SCH (22:12)
[2019-07-22] MEDS: LOVENOX SUBQ SCH ×2 (22:12→22:16)
[2019-07-23] MEDS: NS 1,000 ML IV SCH ×7 (02:06→22:02)
--- NOTE | 2019-07-23 03:53 | PROGRESS NOTE ---
DATE: 07/22/2019 SUBJECTIVE: The patient is resting comfortably in bed. The patient's family states that the patient had a brief period of confusion overnight, and they were concerned about a possible seizure. Overall, the patient states that he is feeling a lot better. The pain in his legs has improved. OBJECTIVE: Vital Signs: Temperature 98.2 degrees, blood pressure 120/63, heart rate 65, respirations 16, O2 saturations 100% on room air. General: This is a young male lying in bed in no acute distress. Heart: S1, S2 normal. Regular rate and rhythm. Lungs: Clear to auscultation bilaterally. Abdomen: Positive bowel sounds. Soft, nontender, nondistended. Extremities: No edema, no cyanosis. Neurologic: The patient is alert and oriented x3. LABORATORY DATA: Hemoglobin 13, hematocrit 39, platelets 163,000. Sodium 139, potassium 4, chloride 102, CO2 25, BUN 13, creatinine 0.7, glucose 78, AST 54, ALT 55, alkaline phosphatase 50. CK 2690. ASSESSMENT AND PLAN: 1. Acute rhabdomyolysis, likely secondary to cocaine use. The patient's CK is improving. Continue with intravenous fluids. Also, the patient's myalgias are improving. 2. Bilateral lobe pneumonia. Improved. 3. Status post extubation. The patient is on room air. 4. Recreational polysubstance abuse. The patient will be going to [facility] for inpatient substance abuse treatment upon discharge. 5. Seizure disorder. The patient is currently on Keppra. The patient has been seen by Dr. Hernandez today and he has added Trileptal. 6. Benzodiazepine withdrawal. The patient is currently on Klonopin twice a day. 7. Insomnia. Continue on melatonin. 8. Deep vein thrombosis prophylaxis. Continue on Lovenox. 9. Disposition. Once the patient's CK has improved, he will be discharged. cc: Michelle Vinson MD
[2019-07-23 07:10] LABS: ESTIMATED GFR > 60
[2019-07-23 07:13] LABS: AGAP 12; ALB/GLOB RATIO 1.5; ALBUMIN 3.9 g/dL (3.5-5.0); ALKALINE PHOSPHATASE 53 U/L (32-122); BUN 11 mg/dL (8-22); CALCIUM 8.8 mg/dL (8.8-10.2); CHLORIDE 108 mmol/L (98-107); CK TOTAL 1504 U/L (24-204); COSMO 288; CREATININE 0.7 mg/dL (0.7-1.2); GLUCOSE 96 mg/dL (70-104); GOT 46 U/L (10-34); GPT 49 U/L (10-44); POTASSIUM 4.2 mmol/L (3.5-5.1); SODIUM 145 mmol/L (136-145); TCO2 25 mmol/L (25-35); TOTAL BILIRUBIN 0.26 mg/dL (0.20-1.00); TOTAL PROTEIN 6.5 g/dL (6.3-8.3)
[2019-07-23] MEDS: TYLENOL PO PRN ×3 (07:36→18:30)
[2019-07-23] MEDS: TRILEPTAL PO SCH ×2 (08:16→22:04)
[2019-07-23] MEDS: AUGMENTIN PO SCH ×2 (08:16→22:02)
[2019-07-23] MEDS: CULTURELLE PO SCH ×2 (08:17→22:04)
[2019-07-23] MEDS: DOXYCYCLINE PO SCH ×2 (08:17→22:04)
[2019-07-23] MEDS: NEURONTIN PO SCH (08:17)
[2019-07-23] MEDS: KLONOPIN PO SCH ×2 (08:17→22:03)
[2019-07-23] MEDS: KEPPRA PO SCH ×2 (11:19→22:15)
--- NOTE | 2019-07-23 14:38 | PROGRESS NOTE ---
DATE: 07/23/2019 SUBJECTIVE: Mr. Lerma reports no further episodes of altered awareness. Father present at the bedside has not seen any episodes. He received initial oxcarbazepine dose and tolerated that. I reviewed tentative plans with patient and father that we would plan to titrate oxcarbazepine, then stop levetiracetam, follow on 1 seizure medicine for 3 to 6 months and consider stopping seizure medicine at that point if he continues seizure-free. We reviewed discussion of potential seizure risk with benzodiazepine withdrawal. I told him that there should not be an issue if he is not taking benzodiazepines, and if he does take benzodiazepines, he needs to be sure to take them correctly and to avoid abrupt cessation. Thanks for asking Neurology to see Mr. Lerma. cc: MD ESTELLA Younger III
[2019-07-23] MEDS ORDERED: KEPPRA PO SCH (15:15)
[2019-07-23] MEDS: FLEXERIL PO PRN (16:21)
--- NOTE | 2019-07-23 18:00 | PROGRESS NOTE ---
DATE: 07/23/2019 SUBJECTIVE: The patient is resting comfortably. He complains of pain in his back. OBJECTIVE: Vital Signs: Temperature 98.5 degrees, blood pressure 115/52, heart rate 72, respirations 18, O2 saturation is 100% on room air. General: This is a young male, lying in bed, in no acute distress. Heart: S1, S2 normal. Regular rate and rhythm. Lungs: Clear to auscultation bilaterally. Abdomen: Positive bowel sounds. Soft, nontender, nondistended. Extremities: No edema. No cyanosis. Neurologic: The patient is alert and oriented x3. LABORATORY DATA: AST 46, ALT 49, alkaline phosphatase 53. CPK 1504. Potassium 4.2, BUN 11, creatinine 0.7. ASSESSMENT AND PLAN: 1. Acute rhabdomyolysis. Slowly improving. Continue with IV fluids. 2. Bilateral lobe pneumonia. Resolved. Today is day 4 of antibiotic therapy. 3. Acute hypoxemic respiratory failure, status post extubation. Resolved. 4. Recreational polysubstance abuse. The patient will be discharged to an inpatient rehab facility once he is medically stable. 5. Seizure disorder. Continue on Keppra and Trileptal. 6. Benzodiazepine withdrawal. The patient is currently on Klonopin. 7. Insomnia. Continue on melatonin. 8. Deep vein thrombosis prophylaxis. Continue on Lovenox. 9. Disposition. The patient will be discharged once the CK is improved. cc: Michelle Vinson MD
[2019-07-23] MEDS: LOVENOX SUBQ SCH (22:02)
[2019-07-23] MEDS: MELATONIN PO SCH (22:03)
--- NOTE | 2019-07-24 00:20 | PULMONOLOGY PROGRESS NOTE ---
DATE: 07/23/2019 SUBJECTIVE: The patient is awake and alert. He has not gotten out of bed today. OBJECTIVE: Vital Signs: The patient has been afebrile for the last 24 hours. Blood pressure 128/71, heart rate 58, respiratory rate 20, oxygen saturation 100%. HEENT: Pupils are equal and reactive. Oropharynx appears clear. Neck: Supple. Chest: Reveals crackles in the right base. Cardiac: S1-S2. Abdomen: Soft. Extremities: Without edema. LABORATORIES: Sodium 145, potassium 4.2, chloride 108, bicarbonate 25, BUN 11, creatinine 0.7, glucose 98, creatine kinase 1504. IMPRESSION: A 18-year-old with: 1. Aspiration pneumonia which is resolving. 2. Hypoxemic respiratory failure which has resolved. 3. Substance abuse. 4. Seizure disorder, possibly related to benzodiazepine withdrawal. 5. Rhabdomyolysis with declining CK levels. DISCUSSION: A 18-year-old with problems outlined above. The patient is now on room air. From a pulmonary standpoint, fluids could be discontinued and he could be discharged home on an oral antibiotic in the morning. RECOMMENDATION: 1. Continue incentive spirometry. 2. Complete a 7-day course of antibiotics. 3. Okay to discontinue fluids. 4. Okay to discharge from a pulmonary standpoint. cc: Hussein Meyers MD MTDD
[2019-07-24] MEDS: TYLENOL PO PRN ×2 (01:02→13:01)
[2019-07-24] MEDS: NS 1,000 ML IV SCH ×3 (06:06→20:52)
[2019-07-24] MEDS: TRILEPTAL PO SCH ×2 (09:26→20:56)
[2019-07-24] MEDS: AUGMENTIN PO SCH ×2 (09:26→20:53)
[2019-07-24] MEDS: KLONOPIN PO SCH ×2 (09:26→20:54)
[2019-07-24] MEDS: CULTURELLE PO SCH ×2 (09:26→20:54)
[2019-07-24] MEDS: KEPPRA PO SCH (09:26)
[2019-07-24] MEDS: DOXYCYCLINE PO SCH ×2 (09:31→20:56)
[2019-07-24] MEDS: FLEXERIL PO PRN (09:35)
[2019-07-24] MEDS: ATIVAN IV PRN ×3 (10:01→19:49)
[2019-07-24] MEDS: NORCO-5 PO PRN (16:52)
[2019-07-24] MEDS: MELATONIN PO SCH (20:53)
[2019-07-24] MEDS: LOVENOX SUBQ SCH (20:54)
--- NOTE | 2019-07-24 21:35 | PROGRESS NOTE ---
DATE: 07/24/2019 SUBJECTIVE: The patient is resting comfortably in bed. He states that his back is hurting, and his thighs are hurting. He said his calves do not hurt as much today. He states that he is restless and wants to be discharged. OBJECTIVE: Vital Signs: Temperature 98, blood pressure 127/72, heart rate 80, respirations 16, O2 saturation 98% on room air. General: This is a young male lying in bed in no acute distress. Heart: S1, S2 normal. Regular rate and rhythm. Lungs: Clear to auscultation bilaterally. Abdomen: Positive bowel sounds. Soft, nontender, nondistended. Extremities: No edema, no cyanosis. Neurologic: The patient is alert and oriented x3. LABS: CK is 648. ASSESSMENT AND PLAN: 1. Acute rhabdomyolysis. Slowly improving. Will decrease the IV fluid rate. The patient states that his myalgias are about the same. 2. Bilateral lobe pneumonia. Improved. Today is day 5 of antibiotic therapy. 3. Acute hypoxemic respiratory failure, status post extubation. Resolved. 4. Recreational polysubstance abuse. The patient will be discharged to inpatient rehab at [facility] once he is medically stable. 5. Seizure disorder. Continue on Keppra and Trileptal. 6. Benzodiazepine withdrawal. Slowly improving. 7. Insomnia. Continue on melatonin. 8. Deep vein thrombosis prophylaxis. Continue on Lovenox. 9. Disposition. Hopefully, the patient will be will be discharged tomorrow. cc: Michelle Vinson MD
[2019-07-25] MEDS: ATIVAN IV PRN (03:10)
[2019-07-25] MEDS: NS 1,000 ML IV SCH ×2 (03:15→11:29)
[2019-07-25] MEDS: KEPPRA PO SCH (03:22)
[2019-07-25 07:05] LABS: HEMATOCRIT 41.8 % (42.0-52.0); HEMOGLOBIN 14.4 g/dL (14.0-18.0); MCH 30.9 PG (27-31); MCHC 34.4 g/dL (33-37); MCV 89.7 FL (81-99); MPV 9.4 FL (7.4-10.4); RBC 4.66 XMIL (4.7-6.1); RDW 11.5 % (11.5-14.5)
[2019-07-25] MEDS: NORCO-5 PO PRN (07:28)
[2019-07-25 07:39] VITALS: BP 127/71
[2019-07-25] MEDS ORDERED: FLU VACCINE IM ONE (07:43)
[2019-07-25 07:46] LABS: AGAP 10; ALB/GLOB RATIO 1.5; ALKALINE PHOSPHATASE 62 U/L (32-122); BUN 9 mg/dL (8-22); CALCIUM 9.1 mg/dL (8.8-10.2); CHLORIDE 104 mmol/L (98-107); CK TOTAL 328 U/L (24-204); COSMO 276; CREATININE 0.7 mg/dL (0.7-1.2); ESTIMATED GFR > 60; GLUCOSE 62 mg/dL (70-104); GOT 24 U/L (10-34); GPT 35 U/L (10-44); POTASSIUM 3.8 mmol/L (3.5-5.1); SODIUM 140 mmol/L (136-145); TCO2 26 mmol/L (25-35); TOTAL BILIRUBIN 0.37 mg/dL (0.20-1.00); TOTAL PROTEIN 6.6 g/dL (6.3-8.3)
[2019-07-25] MEDS: KLONOPIN PO SCH ×2 (07:49→09:47)
[2019-07-25] MEDS: DOXYCYCLINE PO SCH ×2 (07:49→09:47)
[2019-07-25] MEDS: TRILEPTAL PO SCH ×2 (07:49→09:47)
[2019-07-25] MEDS: CULTURELLE PO SCH ×2 (07:50→09:47)
[2019-07-25] MEDS: AUGMENTIN PO SCH ×2 (07:50→09:47)
[2019-07-25] MEDS: TYLENOL PO PRN (12:08)
--- NOTE | 2019-08-03 14:39 | DISCHARGE SUMMARY ---
ADMISSION DATE: 07/15/2019 DISCHARGE DATE: 07/25/2019 FINAL DISCHARGE DIAGNOSES: 1. Acute hypoxemic respiratory failure, requiring intubation. 2. Toxic metabolic encephalopathy secondary to polysubstance abuse. 3. Generalized tonoclonic seizures. 4. Recreational substance abuse. 5. Pneumonia. 6. Rhabdomyolysis. 7. Acute kidney injury. 8. Insomnia. 9. Benzodiazepine withdrawal. CONSULTATIONS: 1. Pulmonary consultation with Dr. Mahajan. 2. Neurology consultation with Dr. Hernandez. HOSPITAL COURSE: Mr. Lerma is a 18-year-old male who presented to the ER, obtunded and having persistent seizures. A head CT was done that revealed no acute intracranial pathology. Also, a chest x-ray was done that revealed a left basilar infiltrate. The patient required intubation, and was placed on the ventilator for airway protection due to his seizures and altered mental status. The patient was admitted to the ICU. Pulmonary Medicine as well as Neurology were consulted. The patient was placed on antiseizure medication, as well as broad-spectrum antibiotics after cultures were obtained. The patient was monitored closely. Ultimately, the sputum culture grew out MSSA, and the blood cultures remain negative. The patient improved enough to be extubated. A drug toxicology screen was done that revealed cocaine and marijuana. The patient started to complain of lower extremity pain, mainly in his muscles. CK was checked, and the patient was noted to be in rhabdomyolysis. The patient was started on aggressive IV fluid hydration, which resulted in improvement in the CK. The patient decided that he did want inpatient substance abuse treatment. This was discussed with the patient and his family, and they were all in agreement. Arrangements were made for the patient to be discharged to [facility] for inpatient substance abuse treatment. The patient continued to improve clinically, and was transferred to the medical floor. The patient was then switched over to oral Keppra, and Trileptal was also added as a second agent. On the day of discharge, the patient was noted to have a CK of 328, and all of his other laboratory studies were noted to be within normal limits. DISCHARGE MEDICATIONS: 1. Lactobacillus 1 tablet oral twice a day. 2. Klonopin 0.25 mg oral twice a day. 3. Melatonin 1 mg oral at bedtime. 4. Tylenol 650 mg oral every 6 hours p.r.n. 5. Augmentin 875 mg oral every 12 hours x3 days. DISCHARGE DIET: Regular diet. ACTIVITY: As tolerated. FOLLOWUP INSTRUCTIONS: The patient will need to follow up with his primary care physician upon discharge from inpatient rehab. cc: Michelle Vinson MD
== END 2019-07-25 12:25 | disposition home or self-care (01) | DRG 896 ==
LOC: SUPCPDRO → ED 14:35 → EDIPHOLD 14:36 → SUATTDRO 14:36 → ICU 20:51 → 4N 07-19 01:02
PROVIDERS: ATTEND Internal Medicine